=== PATIENT | male | born 1965 | race Caucasian/White ===

== ENCOUNTER 2017-05-11 20:19 | Inpatient (IN) ==
[2017-05-11 21:15] LABS: Basophils % 0.3 %; Eosinophils # 0.2 K/mcL (0.0-0.6); Eosinophils % 2.8 %; Hematocrit 46.9 % (37.5-50.1); Hemoglobin 16.5 g/dL (12.9-16.9); Immature Granulocytes % 0.2 % (0-4); Lymphocytes # 1.7 K/mcL (0.6-4.6); Lymphocytes % 26.9 %; Mean Corpuscular HGB Conc 35.2 g/dL (31.6-35.5); Mean Corpuscular Hemoglobin 30.7 pg (28.0-33.3); Mean Corpuscular Volume 87.3 fL (83.0-100.0); Mean Platelet Volume 10.7 fL (9.4-12.4); Monocytes # 0.6 K/mcL (0.0-1.3); Monocytes % 9.4 %; Neutrophils # 3.7 K/mcL (1.6-8.9); Platelet Count 135 K/mcL (140-400); Red Blood Count 5.37 M/mcL (4.19-5.50); Red Cell Distribution Width 13.4 % (11.5-14.5); Segmented Neutrophils % 60.4 %
[2017-05-11 21:27] LABS: INR 1.1; Prothrombin Time 11.9 Seconds (9.4-12.1)
[2017-05-11 21:29] LABS: Activated Partial Thrombo Time 30.5 Seconds (26.0-36.0); BUN/Creatinine Ratio 18 (6-26); Blood Urea Nitrogen 25 mg/dL (8-26); Carbon Dioxide 23 mEq/L (19-29); Chloride 103 mEq/L (98-109); Glucose 143 mg/dL (70-99); Osmolality,Calculated 293 (280-300); Potassium 3.2 mEq/L (3.5-4.5); Sodium 138 mEq/L (136-145); eGFR For African Americans > 60 (> 60); eGFR For Non-African Americans 53 (> 60)
[2017-05-11] MEDS ORDERED: Aspirin 81 MG TAB.CHEW PO ONE (22:25)
--- NOTE | 2017-05-11 22:31 | Emergency Department Note ---
Addendum entered and electronically signed by Romero Yeager DO 05/12/17 00:18: EKG done and reviewed by myself and attending at 2030. It shows a normal sinus rhythm at a rate of 97, OR 163, QRS 96, QTC 394 with a normal axis. There is ST elevation in leads V1 through V3 with ST depression in lead 2. There is no old EKG to compare with at this time. There are no signs of T-wave abnormalities, heart strain, hypertrophy, heart block. There does not appear to be somewhat forgotten syndrome. Overall impression is EKG shows normal sinus rhythm with ST elevations and ST depressions. This was relayed to the tumbler machine operator helper. Original Note: Disposition Clinical Impression: Elevated troponin, ST elevation Disposition: Admitted As Inpatient Condition: Fair Time of Disposition: 00:10 Chest Pain HPI - General Chief Complaint: ED Chest Pain Stated Complaint: chest discomfort Time Seen by Provider: 05/11/17 22:07 Source: patient Mode of arrival: ambulatory Limitations: no limitations Vital Signs Reviewed: Yes Nursing Notes Reviewed: Yes - History of Present Illness HPI Narrative: 51-year-old male presents to the ED complaining of chest discomfort. He has a history of heart catheterization where they placed for stents at [place] in 2010 he has not had any problems since then. He has a history of hypertension as well as hyperlipidemia. Patient states the chest discomfort started about 2 days ago was centrally located and there was no radiation. He said that it comes and goes he has not taken anything for the pain. He does not know any nausea or vomiting. States the pain is when it is present 6 out of 10. He has noticed some exertional dyspnea when he does any kind of walking recently which is abnormal for him. also states that he has been a lower fatigued and tired recently. He also has had this chronic cough for the last week and this presented the same way as his last time he had a heart attack back in 2010. Patient states he has had a headache for the last couple days. No blurry vision , abdominal pain, nausea or vomiting, fevers, change in bowel or bladder movements, pain or tingling going down the arms or legs. Severity scale (1-10): 0 - Related Data Home Medications Medication Instructions Recorded Confirmed Aspirin Enteric Coated [Aspirin EC] 81 mg PO DAILY 05/11/17 05/11/17 Lisinopril [Zestril] 40 mg PO DAILY 05/11/17 05/11/17 Metoprolol Succinate 100 mg PO DAILY 05/11/17 05/11/17 Omeprazole [PriLOSEC] 20 mg PO DAILY 05/11/17 05/11/17 hydroCHLOROthiazide 25 mg PO QAM 05/11/17 05/11/17 [Hydrochlorothiazide] Allergies Allergy/AdvReac Type Severity Reaction Status Date / Time No Known Allergies Allergy Unverified 07/06/15 11:36 Constitutional: Reports: as per HPI Eyes: Denies: eye pain, eye discharge, vision change ENT ED: Denies: ear pain, throat pain, dental pain, hearing loss, epistaxis, congestion, dysphagia Cardiovascular: Reports: chest pain (Not on presentation to the emergency department.), dyspnea on exertion. Denies: palpitations, edema, syncope Respiratory: Denies: cough, dyspnea, wheezes, hemoptysis, stridor Gastrointestinal: Denies: abdominal pain, nausea, vomiting, diarrhea, constipation, hematemesis, melena, hematochezia Genitourinary: Denies: urgency, dysuria, frequency, hematuria Musculoskeletal: Denies: back pain, neck pain, arthralgia, myalgia Integumentary: Denies: rash, abrasion, lesions Neurological: Reports: as per HPI, headache. Denies: weakness, numbness, paresthesias Psychiatric: Denies: anxiety, depression, suicidal thoughts, homicidal thoughts , auditory hallucinations, visual hallucinations Chest Pain PMH - Past Medical History Medical history: Reports: hypertension, myocardial infarction - Social History Smoking Status: Never smoker Alcohol use: Reports: occasionally Drug use: Reports: none Physical Exam - General Limitations: no limitations General appearance: alert, in no apparent distress - Head Head exam: atraumatic, normocephalic, normal inspection - Eye Eye exam: Present: normal appearance, PERRL, EOMI - ENT ENT exam: normal exam, normal oropharynx, mucous membranes moist - Neck Neck exam: Present: normal inspection, full ROM, trachea midline - Chest Chest inspection: Present: normal inspection, symmetric chest wall rise. Absent : tenderness - Respiratory Respiratory exam: Present: normal lung sounds bilaterally. Absent: respiratory distress, wheezes, accessory muscle use - Cardiovascular Cardiovascular exam: Present: regular rate, normal rhythm, normal heart sounds - Abdominal Exam Abdominal exam: Present: soft, Non-Tender, normal bowel sounds. Absent: tenderness, distention, guarding, rebound, rigidity - Extremities Exam Extremities exam: Present: normal inspection, full ROM. Absent: tenderness, pedal edema - Back Exam Back exam: Present: normal inspection, full ROM. Absent: tenderness - Neurological Exam Neurological exam: Present: alert, oriented X3 - Skin Skin exam: Present: warm, dry, intact, normal color Course Course Narrative: 51-year-old male presented to the ED complaining of chest discomfort that started about 2 days ago. He was not in triage they did labs as well as chest x -ray and EKG there. He did have an elevated troponin of 0.27 cm immediately brought back EKG did show some ST changes as there were his elevation in V1, V2 and some ST depression in lead 2. Patient does have a cardiac history. Because all the labs chest x-ray and EKG were done we will contact the tumbler machine operator helper to see if he needs immediate catheterization. We will not do that this time and he will be admitted to the medicine service being heparinized. He was given aspirin. We will contact the hospitalist. - Consultations Consultation #1: Spoke with Dr. Lopes who stated that he is 20 admissions behind and he would call back to accept this patient. I told him that this is a chest pain and we contacted the interventional list. I commit for an elevated troponin he said okay and would call back. Time: 23:00 Consultation #2: Spoke with Dr. Raines the tumbler machine operator helper who stated that the EKG changes are most likely old and they would consider heart catheterization tomorrow morning as they would not do it tonight. They recommend that we heparinize the patient admit to the hospitalist service and consult cardiology. Time: 22:55 Consultation #3: Dr. Lopes called back at this time and said he would accept the patient to a telemetry bed. Assessment and plan as well as history and physical were splinted. He understands this. I told him that RE consulted with cardiology who recommended to heparinize the patient which started been done. We did give the patient aspirin I told him this. Time: 00:09 Vital Signs Temperature 98.1 F 05/11/17 20:26 Pulse Rate 107 05/11/17 20:26 Respiratory Rate 18 05/11/17 20:26 Blood Pressure 198/117 05/11/17 20:26 O2 Sat by Pulse Oximetry 97 05/11/17 20:26 Temperature 98.1 F 05/11/17 20:26 Pulse Rate 77 05/12/17 00:12 Respiratory Rate 18 05/12/17 00:44 Blood Pressure 149/77 05/12/17 00:44 O2 Sat by Pulse Oximetry 96 05/12/17 00:12 Oxygen Delivery Oxygen Delivery Room Air Chest Pain - MDM Narrative Medical decision making narrative: 51-year-old male presents to the ED complaining of chest tightness. Upon arrival to the emergency department he did not have any chest pain. He did have an elevated troponin of 0.27 chest x-ray was normal EKG did show some ST elevation in leads V1 through V3 as well as ST depression in lead 2. We contacted the tumbler machine operator helper who said that they would see them tomorrow and there have been no heart catheter in today after looking at the EKG he recommended that we heparinize admit to medicine and consult cardiology. We did give him aspirin upon arrival. He is not having any chest pains would not give him any nitroglycerin. He was given heparin. We contacted the hospitalist who agreed to admit the patient with cardiology consultation. Patient is still having no pain at this time. Patient is admitted to the hospitalist service to a telemetry bed. Patient is discharged in stable condition and vital signs are stable this time. Chest X-Ray 05/11/17 20:30 IMPRESSION: No acute cardiopulmonary disease. D/ / Ruperto Lovelace MD / Ruperto Lovelace MD Interpreting Provider: Ruperto Lovelace MD - Medical Records Medical records reviewed: Yes I reviewed the patient's medical records. - Lab Data Lab results reviewed: Yes I reviewed the patient's lab results. Result diagrams: 05/11/17 21:03 05/11/17 21:03 Lab Results 05/11/17 05/11/17 05/11/17 Range/Units 21:03 21:03 21:03 WBC 6.2 (4.3-11.1) K/mcL RBC 5.37 (4.19-5.50) M/mcL Hgb 16.5 (12.9-16.9) g/dL Hct 46.9 (37.5-50.1) % MCV 87.3 (83.0-100.0) fL MCH 30.7 (28.0-33.3) pg MCHC 35.2 (31.6-35.5) g/dL RDW 13.4 (11.5-14.5) % Plt Count 135 L (140-400) K/mcL MPV 10.7 (9.4-12.4) fL Immature Gran % 0.2 (0-4) % Seg Neutrophils % 60.4 % Lymphocytes % 26.9 % Monocytes % 9.4 % Eosinophils % 2.8 % Basophils % 0.3 % Neutrophils # 3.7 (1.6-8.9) K/mcL Lymphocytes # 1.7 (0.6-4.6) K/mcL Monocytes # 0.6 (0.0-1.3) K/mcL Eosinophils # 0.2 (0.0-0.6) K/mcL Basophils # 0.0 (0.0-0.2) K/mcL PT 11.9 (9.4-12.1) Seconds INR 1.1 APTT 30.5 (26.0-36.0) Seconds Sodium 138 (136-145) mEq/L Potassium 3.2 L (3.5-4.5) mEq/L Chloride 103 (98-109) mEq/L Carbon Dioxide 23 (19-29) mEq/L BUN 25 (8-26) mg/dL Creatinine 1.41 H (0.72-1.25) mg/dL Est GFR ( Amer) > 60 (> 60) Est GFR (Non-Af Amer) 53 L (> 60) BUN/Creatinine Ratio 18 (6-26) Glucose 143 H (70-99) mg/dL Calculated Osmolality 293 (280-300) Calcium 10.0 (8.6-10.8) mg/dL Troponin I (0-0.03) ng/mL 05/11/17 Range/Units 21:03 WBC (4.3-11.1) K/mcL RBC (4.19-5.50) M/mcL Hgb (12.9-16.9) g/dL Hct (37.5-50.1) % MCV (83.0-100.0) fL MCH (28.0-33.3) pg MCHC (31.6-35.5) g/dL RDW (11.5-14.5) % Plt Count (140-400) K/mcL MPV (9.4-12.4) fL Immature Gran % (0-4) % Seg Neutrophils % % Lymphocytes % % Monocytes % % Eosinophils % % Basophils % % Neutrophils # (1.6-8.9) K/mcL Lymphocytes # (0.6-4.6) K/mcL Monocytes # (0.0-1.3) K/mcL Eosinophils # (0.0-0.6) K/mcL Basophils # (0.0-0.2) K/mcL PT (9.4-12.1) Seconds INR APTT (26.0-36.0) Seconds Sodium (136-145) mEq/L Potassium (3.5-4.5) mEq/L Chloride (98-109) mEq/L Carbon Dioxide (19-29) mEq/L BUN (8-26) mg/dL Creatinine (0.72-1.25) mg/dL Est GFR ( Amer) (> 60) Est GFR (Non-Af Amer) (> 60) BUN/Creatinine Ratio (6-26) Glucose (70-99) mg/dL Calculated Osmolality (280-300) Calcium (8.6-10.8) mg/dL Troponin I 0.27 H* (0-0.03) ng/mL - Radiology Data Radiology results reviewed: Yes I reviewed the patient's radiology results. Heart Score - Score History: Moderately Suspicious EKG: Non Specific repolarisation Disturbance Age: 45-65 Risk Factors: Equal/Greater than 3 risk factor or history of atherosclerotic disease Troponin: 1-3x normal limit HEART Score Total: 6 S.B.A.R. - S.B.A.R. Transition of Care: Spoke with Dr. Lopes the hospitalist who agreed to admit the patient to a telemetry service and consult with cardiology. This was done End history and physical as well as her assessment and plan. Situation: Demographics, MOA Background: Presenting Complaint, Relevant PMH, Meds, & Allergies Assessment: Vital Signs, Course and respsone to treatment, Exam Concerns, Patient/Family Expectation, Pertinant Lab Results, Outstanding Labs Recommendation: Barrier(s) to disposition, Recommendation based on pending studies, treatments, or consults Gina Report Given to: Dr. Moses Fuentes Repor Time: 00:10 Attestation Statement - Attestation Attestation: I, Khoi Desir, examined this patient and my medical decision-making was reviewed with the FORECAST ANALYST/PA/Advanced Practice Nurse/Resident Physician. I agree with the documented findings, disposition and treatment plan as described except to the extent set forth below. 51-year-old male presents emergency Department with concerns of chest discomfort , weakness, and fatigue. Patient has a history of multiple stents placed about 6 years ago for his [place] which presented with similar symptoms. Patient states he has had increasing weakness and fatigue over the past 2 days. He had intermittent chest pressure which radiated to his left arm. In the emergency department the patient states he is pain free. Patient had initial positive troponin of 0.27. He had an EKG which showed normal sinus rhythm with rate of [address] depressions in lead V2 and ST elevations in V1, V2. Interventionalists, Dr. Raines, was paged immediately after initial evaluation. He recommended that as long as the patient was pain-free, to admit the patient on heparin to the hospitalist and he would see in the morning for further evaluation. Patient given aspirin in the emergency department. He continued to be pain-free.
[2017-05-11] MEDS ORDERED: *HR* Heparin 5,000 UNIT/ML VIAL IVP PRN ×2 (23:36)
[2017-05-11] MEDS ORDERED: *HR* Heparin 5,000 UNIT/ML VIAL IVP ONE (23:36)
[2017-05-11] MEDS ORDERED: Heparin 25,000 UNIT/500 ML D5W 25,000 UNIT/500 ML MLS IVC SCH (23:45)
[2017-05-12] MEDS ORDERED: Naloxone 0.4 MG/ML INJ IVP PRN (01:39)
[2017-05-12] MEDS ORDERED: Ondansetron 4 MG/2 ML VIAL IVP PRN ×2 (01:39→19:16)
[2017-05-12] MEDS ORDERED: Acetaminophen 325 MG TABLET PO PRN (01:39)
[2017-05-12] MEDS ORDERED: *HR* Promethazine 25 MG/ML VIAL IVP PRN (01:39)
[2017-05-12] MEDS ORDERED: *HR* Morphine 2 MG/ML SYRINGE IVP PRN ×2 (01:39→19:32)
[2017-05-12] MEDS ORDERED: Nitroglycerin 0.4 MG TAB.SUBL SL PRN (01:43)
--- NOTE | 2017-05-12 02:46 | Internal Med History&Physical ---
Date of Encounter: 05/12/17 Time of Encounter: 02:00 Assessment and Plan (1) Chest pain Current visit: Yes Status: Acute Acute chest pain - probable ACS Continue aspirin, IV heparin, statin, nitroglycerin as needed EKG - normal sinus rhythm with ST depression in lead [address] elevation in V1 to V3 Troponin - 0.27, cycle troponin Chest x-ray - no acute process Cardiology consult - patient will be evaluated in the morning, advised to continue IV heparin Cardiac telemetry, continue to monitor closely, labs in a.m. Qualifiers: Ischemic chest pain type: stable angina pectoris Qualified Code(s): I20.8 - Other forms of angina pectoris (2) Hypertension Current visit: Yes Status: Chronic Essential hypertension, uncontrolled, continue home meds, monitor Qualifiers: Hypertension type: essential hypertension Qualified Code(s): I10 - Essential (primary) hypertension (3) CAD (coronary artery disease) Current visit: Yes Status: Chronic Coronary artery disease status post stents Continue aspirin and statin Qualifiers: Coronary Disease-Associated Artery/Lesion type: [place] artery [place] vs. transplanted heart: [place] heart Associated angina: with unstable angina Qualified Code(s): I25.110 - Atherosclerotic heart disease of [place] coronary artery with unstable angina pectoris (4) DVT prophylaxis Current visit: Yes Status: Acute Continue IV heparin Internal Medicine - H&P: HPI Chief complaint: chest pain Admitted From: Emergency Dept Plans for Post Hospital Care: Home History of present illness: Mr. Irene is a 51 year old male with past medical history of coronary artery disease status post stents, hypertension. Patient presents today with complaint chest pain. Examined in the room. Patient is awake and alert. Not in any distress. Able to provide all history. No family members at bedside. Patient states he developed chest pain about 2 days ago. Symptoms have slowly worsened. He states it was worse when he went to work today. Aggravated with exertion. He also complained of mild associated shortness of breath and palpitations. Also has a headache. Denies abdominal pain, nausea or vomiting or fever. He describes the pain as a dull constant pressure. It is mainly the left side and radiates to the neck at times. No alleviating factors. No other associated symptoms. Initial workup in the ER is significant for elevated troponin. EKG shows normal sinus rhythm with ST depression. Cardiology has been notified. Patient is on IV heparin. Continue aspirin and statin. CODE STATUS full code. Past Med Surg Social Fam HX - Past Medical History Medical history: hypertension, myocardial infarction - Social History Smoking Status: Never smoker Smokeless Tobacco Status: Yes Alcohol use: rarely Drug use: none - Family History Mother Age: 70 Family Member Ethnicity: Non- Living Status: Still Living Hx Family Endocrine Disorder: Yes Father Age: 75 Family Member Ethnicity: Non- Living Status: Still Living Hx Family Cancer: Yes (prostate cancer) Internal Medicine - H&P: Meds Aspirin Enteric Coated [Aspirin EC] 81 mg PO DAILY 05/11/17 [History] Lisinopril [Zestril] 40 mg PO DAILY 05/11/17 [History] Metoprolol Succinate 100 mg PO DAILY 05/11/17 [History] Omeprazole [PriLOSEC] 20 mg PO DAILY 05/11/17 [History] hydroCHLOROthiazide [Hydrochlorothiazide] 25 mg PO QAM 05/11/17 [History] 3 Allergy/AdvReac Type Severity Reaction Status Date / Time No Known Allergies Allergy Unverified 07/06/15 11:36 All Systems PM: A 10-system review of systems was performed and is negative for pertinent findings except as documented above in the HPI. - Constitutional Constitutional: no fatigue, no fever(s), no weakness - EENT Eyes: no blurry vision - Cardiovascular Cardiovascular ROS IM: chest pain, dyspnea, dyspnea on exertion, palpitations, no diaphoresis, no edema, no lightheadedness, no orthopnea, no syncope - Respiratory Respiratory: dyspnea, dyspnea on exertion, no cough, no hemoptysis, no wheezing , no chest congestion - Gastrointestinal Gastrointestinal: no abdominal pain, no cramping, no diarrhea, no hematemesis, no hematochezia, no nausea, no vomiting - Genitourinary Genitourinary ROS male: no dysuria - Neurological Neurological ROS: no abnormal gait, no confusion, no convulsions, no dizziness, no loss of vision, no numbness, no tingling - Constitutional Vitals: Temp Pulse Resp BP Pulse Ox 97.5 F L 60 15 162/104 94 05/12/17 01:34 05/12/17 01:34 05/12/17 01:34 05/12/17 01:34 05/12/17 01:34 General appearance: Present: A&O X 3, pleasant, no acute distress, answers questions appropriately - Head Head exam: Present: atraumatic - Eye Eye exam: Present: EOMI - ENT ENT exam: Present: mucous membranes moist - Respiratory Respiratory exam: Present: CTAB. Absent: accessory muscle use, rales, rhonchi, wheezes, tachypnea - Cardiovascular Cardiovascular exam: Present: RRR, +S1, +S2 - GI/Abdominal GI/Abdominal exam: Present: soft. Absent: distended, firm, guarding, tenderness - Extremities Exam Extremities exam: Present: radial pulses palpable and symmetrical. Absent: calf tenderness, cyanotic, pedal edema - Neurological Exam Neurological exam: Present: alert, oriented X3, no focal deficits. Absent: facial droop, speech deficit Internal Med - H&P Results - Labs CBC & Chem 7: 05/11/17 21:03 05/11/17 21:03
[2017-05-12 05:08] LABS: Calcium 9.5 mg/dL (8.6-10.8); Carbon Dioxide 27 mEq/L (19-29); Chloride 103 mEq/L (98-109); Chol/HDL Ratio 4.4 (0-4.9); Cholesterol 175 mg/dL (< 200); Glucose 118 mg/dL (70-99); HDL Cholesterol 40 mg/dL (40-59); LDL Cholesterol,Calculated 104 mg/dL (0-99); Potassium 3.5 mEq/L (3.5-4.5); Sodium 139 mEq/L (136-145); Triglycerides 156 mg/dL (< 150); eGFR For African Americans > 60 (> 60); eGFR For Non-African Americans > 60 (> 60)
[2017-05-12 05:31] LABS: BUN/Creatinine Ratio 20 (6-26); Osmolality,Calculated 293 (280-300)
[2017-05-12 05:32] LABS: Blood Urea Nitrogen 23 mg/dL (8-26)
[2017-05-12] MEDS ORDERED: Lisinopril 20 MG TABLET PO SCH (09:00)
[2017-05-12] MEDS ORDERED: Aspirin Enteric Coated 81 MG Tablet PO SCH (09:00)
[2017-05-12] MEDS ORDERED: Metoprolol XL (24 HR) Succ 50 MG TAB.ER.24H PO SCH (09:00)
[2017-05-12] MEDS ORDERED: hydroCHLOROthiazide 25 MG TABLET PO SCH (09:00)
--- NOTE | 2017-05-12 09:21 | Cardiology Consult Note ---
Date of Encounter: 05/12/17 Time of Encounter: 09:20 Assessment and Plan (1) NSTEMI (non-ST elevated myocardial infarction) Current Visit: Yes Status: Acute NSTEMI with troponin 0.27, 0.26. Also in the setting of elevated blood pressure and mild VALE. EKG with new ST depression in the inferolateral leads. Atypical symptoms associated with cough over the last two weeks. Reports chest pain is similar to previous CO. H/o CO and PCI in 2009. No LHC since that time. Check TTE. LHC discussed. Patient and son agrees with plan. I will discuss with Dr Khoi Corrales further. (2) CAD (coronary artery disease) Current Visit: Yes Status: Chronic H/o 4 cardiac stents in 2009 at out-side facility. Continue bb and asa. Recommend adding statin therapy. No started in past d/t mildly elevated AST/ALT. He was recommended to have liver US but he did not complete. Re-check liver enzymes. Qualifiers: Coronary Disease-Associated Artery/Lesion type: [place] artery [place] vs. transplanted heart: [place] heart Associated angina: with unstable angina Qualified Code(s): I25.110 - Atherosclerotic heart disease of [place] coronary artery with unstable angina pectoris (3) Hypertension Current Visit: Yes Status: Chronic Uncontrolled hypertension. Add norvasc. Continue lisinoril, HCTZ, and metoprolol. low sodium diet. Qualifiers: Hypertension type: essential hypertension Qualified Code(s): I10 - Essential (primary) hypertension Discussion w patient/family: The assessment and plan as outlined above was discussed with the patient and/or family members who expressed understanding and agreement. All questions were answered. Thank you for involving us in the care of your patient. Please call with any questions. History of Present Illness Consult date: 05/12/17 Requesting physician: Angy Hamilton Consult reason: elevated troponin Chief complaint: Chest and neck pain, cough, vomiting. History of present illness: Mr. Irene is a 51 year old male with a history of CAD s/p CO and PCI in 2009 at outside hospital, HUI, and HTN who presented with chest and neck burning. Last night symptoms started when he was sitting on his couch. He reports intermittent discomfort over the last two weeks. Most of the time the discomfort is preceeded by coughing. He states he coughs so hard sometimes he vomits. He denies exertional pain. Denies relieving factors. Denies NTG use. He presented to the ED and EKG completed showed ST depression in the inferior leads. Troponin elevated at 0.27. He was found to have mild VALE with creatinine at 1.41. His blood pressure was initially elevated at 190/100. His b/p did improve shortly after arrival. Reports uncontrolled hypertension. On my exam he is currently chest pain free. Past Med Surg Social Fam HX - Past Medical History Medical history: coronary artery disease, hypertension, myocardial infarction - Social History Smoking Status: Never smoker Smokeless Tobacco Status: Yes Alcohol use: rarely Drug use: none - Family History Mother Age: 70 Family Member Ethnicity: Non- Living Status: Still Living Hx Family Endocrine Disorder: Yes Father Age: 75 Family Member Ethnicity: Non- Living Status: Still Living Hx Family Cancer: Yes (prostate cancer) Medications and Allergies Aspirin Enteric Coated [Aspirin EC] 81 mg PO DAILY 05/11/17 [History] Lisinopril [Zestril] 40 mg PO DAILY 05/11/17 [History] Metoprolol Succinate 100 mg PO DAILY 05/11/17 [History] Omeprazole [PriLOSEC] 20 mg PO DAILY 05/11/17 [History] hydroCHLOROthiazide [Hydrochlorothiazide] 25 mg PO QAM 05/11/17 [History] 3 Allergy/AdvReac Type Severity Reaction Status Date / Time No Known Allergies Allergy Unverified 07/06/15 11:36 All Systems Review: A 10-system review of systems was performed and is negative for pertinent findings except as documented above in the HPI. Physical Examination Vital Signs, Last 4 Hours Temp Pulse Resp BP Pulse Ox 05/12/17 07:07 97.8 F 65 15 143/93 96 General: Conversant, No Apparent Distress HEENT: Atraumatic, Normocephaly, Mucus Membranes Moist Neck: No JVD, Normal carotid pulses Cardiac: Reg Rate and Rhythm, Normal S1 and S2, No Murmur Lungs: Normal Breath Sounds, No Wheeze, Rales, Rhonchi Neuro: Alert and responsive, No focal deficits noted Abdomen: Soft, Non-Tender Skin: No rashes noted on visualized skin Musculoskeletal: No Chest Wall Tenderness Extremities: No Clubbing, No Cyanosis, No Edema, Normal Pulses Results 05/11/17 21:03 05/12/17 04:43 Lab Results 05/12/17 05/12/17 05/12/17 04:43 04:43 04:43 APTT 60.3 H D Sodium 139 Potassium 3.5 Chloride 103 Carbon Dioxide 27 BUN 23 Creatinine 1.16 Glucose 118 H Calcium 9.5 Magnesium 2.0 Troponin I 0.26 H* - Imaging and Cardiology Stress Test: report reviewed Echo: report reviewed - EKG Interpretation EKG results cardiology: personally reviewed Consult Discharge Plan - Plan Referrals: Lizette Cho CNP [Primary Care Provider] -
[2017-05-12] MEDS ORDERED: amLODIPine 5 MG TABLET PO SCH (10:00)
[2017-05-12] MEDS ORDERED: Mannitol 25% vial 12.5 GM/50 ML VIAL IVP ONE (10:08)
[2017-05-12] MEDS ORDERED: Lidocaine 2% Syringe 100 MG/5 ML IV ONE (10:08)
[2017-05-12] MEDS ORDERED: *HR* Phenylephrine 10 MG/ML VIAL IVC ONE (10:08)
[2017-05-12] MEDS ORDERED: Tranexamic Acid 1,000 MG/10 ML VIAL IV ONE (10:08)
[2017-05-12] MEDS ORDERED: *HR* Magnesium Sulfate 2 GM/50 ML PIGGYBACK IVPB ONE (10:08)
[2017-05-12] MEDS ORDERED: *HR* Heparin 10,000 UNIT/10 ML VIAL IV ONE (10:08)
[2017-05-12] MEDS ORDERED: Albumin Human 25% 25 GM/100 ML IV.SOLN IV ONE (10:08)
[2017-05-12] MEDS ORDERED: Heparin 1,000 UNITS/500 mL NS 500 ML ONE ×2 (10:12→11:42)
[2017-05-12] MEDS ORDERED: *HR* Heparin 10,000 UNIT/10 ML VIAL ONE (10:12)
[2017-05-12] MEDS ORDERED: 0.9 % Sodium Chloride 1,000 ML ONE ×2 (10:12→10:45)
--- NOTE | 2017-05-12 10:20 | Pre-Sedation Evaluation ---
Pre-sedation evaluation - Pre-sedation checklist Date of procedure: 05/12/17 Procedure: [facility] Recent Vitals: Last Vital Signs Temp 97.8 F 05/12/17 07:07 Pulse 65 05/12/17 07:07 Resp 15 05/12/17 07:07 BP 143/93 05/12/17 07:07 Pulse Ox 96 05/12/17 09:37 H&P (including ROS) documented in medical record: Yes Previous reaction to sedatives/anesthetics: No Dietary Status: NPO after Midnight Airway Assessment: Patient can open mouth completely, TMJ function normal, Micrognathia (under-bite, receding chin) absent, Neck with adequate range of motion Dentition: No loose teeth or bridges Possible difficult airway: No ASA Classification *see protocol: CLASS II-Mild systemic disease Plan of Care: Pt appropriate candidate for procedure/moderate/conscious sedation , Risks/benefits of procedure/sedation discussed w/ patient/family
[2017-05-12] MEDS ORDERED: Nitroglycerin 1,000 MCG/10 ML VIAL IV ONE (10:21)
[2017-05-12] MEDS ORDERED: *HR* Midazolam HCl 5 MG/5 ML VIAL IVP ONE ×4 (10:45→18:49)
[2017-05-12] MEDS ORDERED: *HR* FentaNYL (PF) 250 MCG/5 ML VIAL ONE ×2 (10:45→16:51)
[2017-05-12 11:11] LABS: Alanine Aminotransferase 69 Units/L (0-55); Aspartate Amino Transferase 34 Units/L (5-34)
--- NOTE | 2017-05-12 11:39 | Anesthesia Evaluation PreOp ---
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 History: Denies Any Significant HX Other Medical History: Denies Any Significant HX Alcohol Use: rarely Drug use: none Medications and Allergies Aspirin Enteric Coated [Aspirin EC] 81 mg PO DAILY 05/11/17 [History] Lisinopril [Zestril] 40 mg PO DAILY 05/11/17 [History] Metoprolol Succinate 100 mg PO DAILY 05/11/17 [History] Omeprazole [PriLOSEC] 20 mg PO DAILY 05/11/17 [History] hydroCHLOROthiazide [Hydrochlorothiazide] 25 mg PO QAM 05/11/17 [History] 3 Allergy/AdvReac Type Severity Reaction Status Date / Time No Known Allergies Allergy Unverified 07/06/15 11:36 - Meds/Allergy Pre-op Review Medications Reviewed: Yes Allergies Reviewed: Yes Beta Blockers on Current Med List: Yes If Beta Blockers taken, Date/Time (Last Dose taken): today 0900 Anesthesia Results - Labs 05/11/17 21:03 05/12/17 04:43 Anesthesia Exam Selected Entries 05/12/17 07:07 Temperature 97.8 F Pulse Rate 65 Respiratory Rate 15 Blood Pressure 143/93 O2 Sat by Pulse Oximetry 96 Weight: 112kg - HEENT Pupil (Motor): EOMI Mallampati: III Teeth: Normal Oral Opening: Greater than 3 - AIR GRINDER LOC: Oriented AIR GRINDER Motor: Normal RUE, Normal LUE, Normal RLE, Normal LLE, Normal Face AIR GRINDER Sensory: Normal: RUE, LUE, RLE, LLE, Face - Cardiac Rhythm: Regular Murmur: None - Pulmonary Breath Sounds: bilateral Clear Respiratory Effort: Symmetrical Anesthesia Assess/Plan ASA Score: 4, E Modified [place] Scale for Level of Consciousness: Cooperative, oriented, and tranquil Anesthetic Plan: General Monitoring Plan: Standard Monitors, A-Line, PAC, EDMOND Recovery Plan: ICU (discussed risks of GA, lines, EDMOND and blood products. Questions answered and agrees to proceed.)
[2017-05-12] MEDS ORDERED: *HR* Rocuronium Bromide 50 MG/5 ML VIAL ONE ×4 (11:46→17:44)
[2017-05-12] MEDS ORDERED: *HR* Phenylephrine 10 MG/ML VIAL ONE (11:46)
[2017-05-12] MEDS ORDERED: Protamine Sulfate 250 MG/25 ML VIAL IVP ONE (11:47)
[2017-05-12] MEDS ORDERED: Tranexamic Acid 1,000 MG/10 ML VIAL ONE ×2 (11:47→14:56)
[2017-05-12] MEDS ORDERED: *HR* Etomidate 20 MG/10 ML AMPUL IVP ONE (11:47)
[2017-05-12] MEDS ORDERED: Famotidine 20 MG/2 ML VIAL ONE (11:47)
[2017-05-12] MEDS ORDERED: *HR* FentaNYL (PF) 1,000 MCG/20 ML VIAL ONE (11:55)
[2017-05-12] MEDS ORDERED: Nitroglycerin 25 MG/250 ML INFUS..BTL IVC ONE (11:57)
--- NOTE | 2017-05-12 12:10 | Invasive Diagnostic Lab Proc ---
Name: Didier Irene Date of Study: 05/12/2017 Date: 1965 Ht: 70.1in Medical Record#: [id number] Age: 51 Wt: 247.80lb Gender: Male BSA: 2.29 Order #: [id number] BMI: 35.48 Physicians Procedure Physician: Rachael Corrales MD, [facility] Referring MD: Referring MD: Staff Name Position Time In Herbert Ortega RN Slate Splitting Supervisor 10:50 AM Georgina Hsu RT (R) Scrub 10:51 AM Pearl Boone RN Monitor 10:51 AM Teetee Dunn RN Monitor 10:51 AM Indications Indication Non-Stemi Procedures Performed Procedure L HRT ARTERY/VENTRICLE ANGIO Pre-Procedure Checklist Informed consent is complete signed and on chart. H&P is on chart. ID band is on and ID verified with patient. Patient NPO for procedure The procedure was described for the patient and questions were answered. Blood Pressure: 143/93 ECG is on chart. Rhythm: NSR Plan of Care Patient will tolerate the procedure without complications. Adequate level of comfort will be maintained. Hemodynamics will remain stable Patient will recover from procedure without complications. Respiratory function will be maintained. Cardiac rhythm will remain stable. Patient temperature will be maintained. Patient and/or family have verbalized understanding of the procedure. Patient Education Chief Complaint/Reason for Test: Cardiac Cath Developmental Category: Adult (18-64 years) Developmentally Appropriate for Age: Yes Learning Barriers: None Education Needs: Procedure Education Method: Verbal Information Taught: Cardiac Cath Educational Evaluation: Able to repeat information Intravenous Access Time IV Size Location DC'd Fluid/Drip Rate Units RN 10:20 AM 20g 1 1/" Patent On Arrival Lt Antecubital 0.9NaCl 50 ml/hr Herbert Ortega RN Allergies No Known Allergies Vital Signs Time BP (mmHg) HR (bpm) O2 Sat. RR (bpm) LOC 10:20 AM 143 / 93 65 96 % 15 5 = Fully awake and oriented or at pre-proc level 10:56 AM / % 5 = Fully awake and oriented or at pre-proc level 10:56 AM / % 4 = Oriented but drowsy 11:11 AM / % 4 = Oriented but drowsy 11:29 AM 169 / 105 73 98 % 18 11:34 AM 158 / 98 56 97 % 17 10:58 AM 152 / 101 62 98 % 17 11:03 AM 141 / 94 60 96 % 14 11:08 AM 141 / 86 58 94 % 15 11:13 AM 137 / 81 57 97 % 16 11:18 AM 134 / 88 61 97 % 15 11:23 AM 129 / 82 55 96 % 16 Procedural Medications Time Medication Dose Units Method Given By 10:54 AM Oxygen 2 L/min nasal cannula Herbert Ortega RN 10:56 AM Versed 2 mg Intravenous Herbert Ortega RN 10:56 AM Fentanyl 50 mcg Intravenous Herbert Ortega RN 11:10 AM Lidocaine 2% 16 ml Subcutaneous Rachael Corrales MD, [facility] ASA Classification: CLASS II- Mild systemic disease (i.e. well-controlled diabetes, hypertension, asthma, cigarette smoking) Tracy Score Preprocedure Postprocedure Activity 2- Moves 4 extremities sustained head lift Activity 2- Moves 4 extremities sustained head lift Circulation 2- SBP +/= 20 points of pre-anesthetic level Circulation 2- SBP +/= 20 points of pre-anesthetic level Consciousness 2- Awake and alert oriented x 3 Consciousness 2- Awake and alert oriented x 3 O2 Saturation 2- Able to maintain O2 satruation of 92% on room air O2 Saturation 2- Able to maintain O2 satruation of 92% on room air Respiratory 2- Able to deep breathe and cough well Respiratory 2- Able to deep breathe and cough well Total Score 10 Total Score 10 Contrast Agent: Isovue Diagnostic Contrast: 46 ml Total Contrast: 46 ml Fluoro Dose: 182 mGy Procedure Log Time Note Enter By 10:47 AM CathStat 10:50 AM 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 to farm laborer 2 at 10:50 spencer 10:51 AM Herbert Ortega RN Position: Slate Splitting Supervisor Time in: 10:50 [facility] 10:51 AM Georgina Hsu RT (R) Position: Scrub Time in: 10:51 [facility] 10:51 AM Pearl Boone RN Position: Monitor Time in: 10:51 [facility] 10:51 AM Teetee Dunn RN Position: Monitor Time in: 10:51 [facility] 10:51 AM Patient charges- Angio tray pack, Navilyst 3mm J, Pulse Oximetry and ACIST tubing and transducer tsoummers 10:51 AM Case Delayed No [email or web address] 10:51 AM Hair removed from procedure site in procedure lab using clippers. Bilateral groin prepped with Chloraprep by Herbert Ortega RN, safety strap applied then patient was draped. [facility] intact. [facility] 10:51 AM Physicsuzan paged/called 10:51. tsoummers 10:51 AM Physicsuzan responded and notified patient is ready 10:51 tsoummers 10:51 AM Physician arrived 10:51 [facility] 10:51 AM Meet and greet completed [facility] 10:51 AM Sign in performed according to hospital policy. tsoummers 10:51 AM Procedure start :51 tsoummers 10:54 AM ASA Class CLASS II- Mild systemic disease (i.e. well-controlled diabetes, hypertension, asthma, cigarette smoking) [facility] 10:54 AM Time: 10:54 Oxygen on at 2 L/min per nasal cannula by Herbert Ortega RN [facility] 10:55 AM Case Start 10:55 AM Vitals capture started with the following parameters, Patient=Adult, Interval=5 min, Initial Agrtatww=696 mmHg, Deflation Rate=5 mmHg, Cuff placed on Right Arm 10:56 AM Vitals capture stopped. 10:56 AM Time: 10:56 Patient comfortable and pain free: Yes [facility] 10:56 AM Time: 10:56LOC: 5 = Fully awake and oriented or at pre-proc level [facility] 10:56 AM Time: 10:56 Versed 2 mg Intravenous Given by Herbert Ortega RN [facility] 10:56 AM Time: 10:56 Fentanyl 50 mcg Intravenous Given by Herbert Ortega RN [facility] 10:57 AM Vitals capture started with the following parameters, Patient=Adult, Interval=5 min, Initial Yketwyrg=897 mmHg, Deflation Rate=5 mmHg, Cuff placed on Right Arm 10:57 AM Recorded ECG: HR=61 Condition=Condition 1 10:58 AM Vitals capture stopped. 10:58 AM Vitals capture started with the following parameters, Patient=Adult, Interval=5 min, Initial Lrjutikb=640 mmHg, Deflation Rate=5 mmHg, Cuff placed on Right Arm 10:58 AM HR=62 bpm, OSOJ=251/101 mmhg, SpO2=98.0 %, Resp=17 B/min, EtCO2=35 mmHg, Comment=Sinus Dov 11:03 AM HR=60 bpm, WYSU=742/94 mmhg, SpO2=96.0 %, Resp=14 B/min, EtCO2=33 mmHg, Comment=Sinus Dov 11:08 AM Pressure channel 3 zeroed. 11:08 AM Time out performed according to hospital policy [facility] 11:08 Clinical Presentation: Non-STEMI [facility] 11:08 AM HR=58 bpm, UOED=981/86 mmhg, SpO2=94.0 %, Resp=15 B/min, EtCO2=40 mmHg, Comment=Sinus Dov 11:10 AM Time: :10 16 ml Lidocaine 2% to right groin Subcutaneous Given by Rachael Corrales MD, [facility] 11:10 AM Access obtained by percutaneous puncture. 5Fr 10cm Terumo Kamiah sheath placed in right Femoral artery. [id number] [facility] 11:11 AM 5Fr FL 4 catheter inserted over the wire [facility] 11:11 AM 0.035 145cm Navilyst 3mmJ wire [id number] [facility] 11:11 AM Time: 10:56 Patient comfortable and pain free: Yes [facility] :11 AM Time: 10:56LOC: 4 = Oriented but drowsy [facility] 11:11 AM LCA angiography performed in multiple views. [facility] 11:12 AM Recorded Pressure: Ao, HR=57, Condition=Condition 1 (Aorta) Ao 121/84/102 11:13 AM Catheter removed [facility] 11:13 AM 5Fr FR 4 catheter inserted over the wire [facility] 11:13 AM RCA angiography performed in multiple views. [facility] 11:13 AM HR=57 bpm, HVBE=622/81 mmhg, SpO2=97.0 %, Resp=16 B/min, EtCO2=40 mmHg, Comment=Sinus Dov 11:15 AM Catheter removed [facility] 11:15 AM 5Fr Pigtail catheter inserted over the wire [facility] 11:15 AM Catheter selectively placed in left ventricle [facility] 11:15 AM Bolus angiogram of left Ventricle complete: 8 ml/sec for a total of 24 mls [facility] 11:16 AM Pressure channel 3 zeroed. 11:16 AM Recorded Pressure: LV, HR=59, Condition=Condition 1 (Left Ventricle) LV 97/8/7 11:16 AM Recorded Pressure: LV, Ao, HR=59, Condition=Condition 1 (Left Ventricle) LV 95/13/16, (Aorta) Ao 105/77/91 11:17 AM Catheter removed [facility] 11:17 AM Bolus angiogram of right Femoral complete: 4 ml/sec for a total of 7 mls [facility] 11:17 AM Wire removed [facility] 11:17 AM Procedure completed at 11:17 [facility] 11:18 AM HR=61 bpm, TRVK=889/88 mmhg, SpO2=97.0 %, Resp=15 B/min, Comment=Sinus Dov 11:19 AM Abiola notified patient is CABG consult per Pearl Boone RN. [facility] 11:20 AM Sign out completed: Radiation Dose 181.93 mGy Fluoro Time: 1.2 Isovue 370 - 200ml contrast 46.2 ml given by Rachael Corrales MD, FACC. Complications: NoneCardiac Rehab Consult needed: YesConfirmed administered medications: Yes [facility] 11:20 AM Isovue 370 - 200ml,1 Bottle(s) [facility]. [facility] 11:[facility] AM Post ECG Sinus Bradycardia [facility] 11:20 AM Post Blood Pressure 134/88 [facility] 11:21 AM Information taught Cardiac Cath [facility] 11:21 AM Education needs Procedure, Plan of Care, Safe & Effective Use of Medications, and Responsibilities of Patient in Care [facility] 11:21 AM Learning barriers :None [facility] 11:21 AM Education Methods Verbal [facility] 11:21 AM Education evaluation Able to repeat information [facility] 11:21 AM Site status No bleeding/hematoma - Rt Groin as reported by Sites, Georgina RT (R) at 11:21 [facility] 11:23 AM HR=55 bpm, VKYD=471/82 mmhg, SpO2=96.0 %, Resp=16 B/min, EtCO2=33 mmHg, Comment=Sinus Dov 11:24 AM Fluoro Time: 1.2 tsoummers 11:24 AM Isovue 370 - 200ml contrast 46.2 ml given by Rachael Corrales MD, FACC. tsoummers 11:24 AM Radiation Dose 181.93 mGy [facility] 11:26 AM Time: 11:11 Patient comfortable and pain free: Yes tsoummers 11:26 AM Time: 11:11LOC: 4 = Oriented but drowsy tsoummers 11:29 AM HR=73 bpm, BAEY=894/105 mmhg, SpO2=98.0 %, Resp=18 B/min, Comment=SR 11:32 AM 11:31 Post Pulses Bilateral DP 2+ tsoummers 11:34 AM 5Fr sheath to right groin transduced with heparanized saline and secured with opsite. tsoummers 11:34 AM Sheath left in place to be pulled on floor/holding area tsoummers 11:34 AM Opsite applied tsoummers 11:34 AM HR=56 bpm, VBOK=648/98 mmhg, SpO2=97.0 %, Resp=17 B/min, Comment=Sinus Dov 11:34 AM Delay to floor No tsoummers 11:46 AM Coronary Dominance: right tsoummers 11:47 AM Lesion found in Proximal RCA. Pre Stenosis: 50 Pre AIMEE Flow: 3: Complete and Brisk Flow/Perfusion tsoummers 11:47 AM Lesion found in Mid RCA. Pre Stenosis: 100 Pre AIMEE Flow: 0: No Flow/No perfusion tsoummers 11:47 AM Lesion found in LMCA. Pre Stenosis: 99 Pre AIMEE Flow: 3: Complete and Brisk Flow/Perfusion tsoummers 11:47 AM Lesion found in Proximal LAD. Pre Stenosis: 15 Pre AIMEE Flow: 3: Complete and Brisk Flow/Perfusion tsoummers 11:47 AM Lesion found in Mid LAD. Pre Stenosis: 80 Pre AIMEE Flow: 3: Complete and Brisk Flow/Perfusion tsoummers 11:48 AM Lesion found in Mid Circumflex. Pre Stenosis: 99 Pre AIMEE Flow: 3: Complete and Brisk Flow/Perfusion tsoummers 11:48 AM Lesion found in Ramus. Pre Stenosis: 20 Pre AIMEE Flow: 3: Complete and Brisk Flow/Perfusion tsoummers 11:48 AM Left Main Coronary Artery with 99% stenosis tsoummers 11:48 AM Proximal Left Anterior Descending Coronary Artery with 15% stenosis. tsoummers 11:49 AM Mid/Distal Left Anterior Descending Coronary Artery and diagonal branches with 80% stenosis. tsoummers 11:49 AM Circumflex, Obtuse Marginal, Left Posterior Descending, and Left Posterolateral Coronary Arteries with 99 % stenosis. tsoummers 11:49 AM Right Coronary, Right Posterior Descending Arteries with Right Posterolateral and Acute Marginal branches with 100 % stenosis. [facility] 11:49 AM Ramus with 20% stenosis. [facility] 11:[address] Wylie aware. Arterial blood drawn and sent to lab. [facility] 11:59 AM Report given to Katie CORTES Pt taken to ICU Room #12. 11:59 [facility] 11:59 AM Family placed in consult room. [facility] 11:59 AM Patient out of room: 11:59 [facility] Complications Complication None Hemodynamics Pressures Site Systolic/A Wave Diastolic/V Wave Mean AO 121 84 102 LV 97 8 7 LV 95 13 16 AO 105 77 91 Post Procedure Information Blood Pressure: 134/88 mmHg Rhythm: Sinus Bradycardia Post procedural instructions were given Surgery consult for CABG Site Checks Time Location Status Staff Sheath In? Note 11:21 AM Rt Groin No bleeding/hematoma Sites, Georgina RT (R) Pulses Time Site Pre-Procedure Post-Procedure Note 05/12/2017 10:20:00 AM Bilateral DP 2+ 11:31:00 AM Bilateral DP 2+ Updated by Teetee Dunn RN on 05/12/2017 12:01:54 PM electronically signed on 05/12/2017 12:02:26 PM with status of Final
--- NOTE | 2017-05-12 12:30 | Cardiothoracic Consult Note ---
Date of Encounter: 05/12/17 Time of Encounter: 12:26 Assessment and Plan (1) CAD (coronary artery disease) Current Visit: Yes Status: Chronic Patient is a 51-year-old hypertensive man with known CAD who presented with a 2 day history of exertional substernal chest pain radiating to his left neck. During his evaluation in the emergency department the patient was noted to have elevated troponin I levels consistent with an acute NSTEMI. Cardiac catheterization performed today revealed severe 3 vessel CAD and an LVEF 50%. The patient has been recommended for emergent CABG. I concur with this recommendation. The STS risk ocular reveals an operative mortality risk was 0.6% , deep sternal wound infection risk 0.2%, permanent stroke risk 0.3%, renal failure risk 1.5%, and reoperation risk 3.6%. The patient understands the procedure, benefits, alternatives, and risks and gives his informed consent. We will proceed with emergent CABG this afternoon. The assessment and plan as outlined above was discussed with the patient and/or family members who expressed understanding and agreement. All questions were answered. Qualifiers: Coronary Disease-Associated Artery/Lesion type: [place] artery [place] vs. transplanted heart: [place] heart Associated angina: with unstable angina Qualified Code(s): I25.110 - Atherosclerotic heart disease of [place] coronary artery with unstable angina pectoris - History of Present Illness Consult date: 05/12/17 Requesting physician: Rachael Corrales Consult reason: CABG evaluation. Chief complaint: NSTEMI History of present illness: Mr. Irene is a 51 year old hypertensive man with known CAD who presented to [facility] emergency department last evening with a 2 day history of exertional substernal chest pain radiating to his left neck and associated shortness of breath, dyspnea on exertion, cough, and diaphoresis. The patient's cardiac history dates back to 2009 at which time he underwent stent placement in the LAD and RCA. The patient was on Plavix for 1 year after the stent placement and this was stopped by his semiautomatic stitcher operator. He states that he had done well until last weekend when he developed a cough while working in the yard. At that time he had no substernal chest pain. The pain then developed 2 days ago and was initially associated with exertion; however, yesterday the patient had pain at rest. He was evaluated at [facility] emergency department and found to have elevated troponin I levels consistent with an acute NSTEMI. He was treated medically and admitted for further cardiac workup. He underwent cardiac catheterization today was found to have severe three- vessel CAD and LVEF 50%. In particular the patient has a 90-95% distal left main lesion with encroachment into the LAD, RI, and LCx ostia. In addition, the patient has a 99% mid LCx lesion and a completely occluded mid RCA which fills distally via [id number] collaterals. The patient has been recommended for emergent CABG given the location and severity of the lesions. Past Med Surg Social Fam HX - Past Medical History Medical history: coronary artery disease, hypertension, myocardial infarction - Past Surgical History Surgical History: orthopedic, other (Left knee arthrotomy and repair of medial collateral ligament.) - Social History Smoking Status: Never smoker Smokeless Tobacco Status: Yes Alcohol use: rarely Drug use: none Occupational status: retired Current living situation: Home - Independent Activity Level: Independent ambulation Recent Out of Country Travel Within the Last 8 Weeks: No Exposure or Possible Exposure to Illness During Travel: No - Family History Mother Age: 70 Family Member Ethnicity: Non- Living Status: Still Living Hx Family Endocrine Disorder: Yes Father Age: 75 Family Member Ethnicity: Non- Living Status: Still Living Hx Family Cancer: Yes (prostate cancer) Medications and Allergies Aspirin Enteric Coated [Aspirin EC] 81 mg PO DAILY 05/11/17 [History] Lisinopril [Zestril] 40 mg PO DAILY 05/11/17 [History] Metoprolol Succinate 100 mg PO DAILY 05/11/17 [History] Omeprazole [PriLOSEC] 20 mg PO DAILY 05/11/17 [History] hydroCHLOROthiazide [Hydrochlorothiazide] 25 mg PO QAM 05/11/17 [History] 3 Allergy/AdvReac Type Severity Reaction Status Date / Time No Known Allergies Allergy Unverified 07/06/15 11:36 All Systems Review: A 10-system review of systems was performed and is negative for pertinent findings except as documented above in the HPI. Physical Examination Vital Signs, Last 4 Hours Pulse Ox 05/12/17 09:37 96 General: Conversant, No Apparent Distress HEENT: Atraumatic, Normocephaly, Trachea midline Neck: No JVD, Normal carotid pulses Cardiac: Reg Rate and Rhythm, Normal S1 and S2, No Murmur Lungs: Normal Breath Sounds, No Wheeze, Rales, Rhonchi Neuro: Alert and responsive, No focal deficits noted Vascular: Normal capillary refill Abdomen: Soft, Non-tender Extremities: No Clubbing, No Cyanosis, No Edema Results 05/11/17 21:03 05/12/17 04:43 Lab Results, Last 24 hours 05/12/17 05/12/17 05/12/17 04:43 04:43 04:43 APTT 60.3 H D Sodium 139 Potassium 3.5 Chloride 103 Carbon Dioxide 27 BUN 23 Creatinine 1.16 Glucose 118 H Calcium 9.5 Magnesium 2.0 AST ALT Troponin I 0.26 H* 05/12/17 05/12/17 05/12/17 10:26 10:26 10:27 APTT 44.6 H Sodium Potassium Chloride Carbon Dioxide BUN Creatinine Glucose Calcium Magnesium AST 34 ALT 69 H Troponin I 0.22 H* Consult Discharge Plan - Plan Referrals: Lizette Cho LOOM BLOWER [Primary Care Provider] -
[2017-05-12] MEDS ORDERED: Aspirin 81 MG TAB.CHEW PO ONE (12:33)
[2017-05-12] MEDS ORDERED: ceFAZolin 2,000 MG in D5% in Water 100 ML IVPB ONE (12:33)
[2017-05-12 12:54] LABS: Basophils % 0.4 %; Eosinophils # 0.2 K/mcL (0.0-0.6); Eosinophils % 3.2 %; Hematocrit 45.3 % (37.5-50.1); Hemoglobin 16.2 g/dL (12.9-16.9); Immature Granulocytes % 0.4 % (0-4); Lymphocytes # 1.6 K/mcL (0.6-4.6); Lymphocytes % 31.2 %; Mean Corpuscular HGB Conc 35.8 g/dL (31.6-35.5); Mean Corpuscular Hemoglobin 30.9 pg (28.0-33.3); Mean Corpuscular Volume 86.5 fL (83.0-100.0); Monocytes # 0.5 K/mcL (0.0-1.3); Monocytes % 10.7 %; Neutrophils # 2.7 K/mcL (1.6-8.9); Platelet Count 118 K/mcL (140-400); Red Blood Count 5.24 M/mcL (4.19-5.50); Red Cell Distribution Width 13.3 % (11.5-14.5); Segmented Neutrophils % 54.1 %
[2017-05-12 12:59] LABS: INR 1.1
[2017-05-12 13:02] LABS: Activated Partial Thrombo Time 31.2 Seconds (26.0-36.0)
[2017-05-12 13:06] LABS: Prothrombin Time 12.2 Seconds (9.4-12.1)
[2017-05-12 13:09] LABS: BUN/Creatinine Ratio 19 (6-26); Blood Urea Nitrogen 21 mg/dL (8-26); Calcium 9.6 mg/dL (8.6-10.8); Carbon Dioxide 26 mEq/L (19-29); Chloride 103 mEq/L (98-109); Chol/HDL Ratio 5.3 (0-4.9); Cholesterol 190 mg/dL (< 200); Glucose 108 mg/dL (70-99); HDL Cholesterol 36 mg/dL (40-59); LDL Cholesterol,Calculated 113 mg/dL (0-99); Osmolality,Calculated 290 (280-300); Potassium 3.8 mEq/L (3.5-4.5); Sodium 138 mEq/L (136-145); Triglycerides 203 mg/dL (< 150); eGFR For African Americans > 60 (> 60); eGFR For Non-African Americans > 60 (> 60)
[2017-05-12] MEDS ORDERED: NiCARdipine 2.5 MG/10 ML Syringe IVPB ONE (13:53)
--- NOTE | 2017-05-12 14:02 | Anesthesia Procedures ---
Date of Encounter: 05/12/17 Time of Encounter: 13:30 Procedures: Anesthesia - Central Line Placement Right IJ Consent obtained: written consent Time out performed: Yes Patient placed on monitor/pulse ox: Yes MD prep: mask, gown, gloves Central line prep: Chlorhexidine scrub Ultrasound used for placement: Yes Technique: Seldinger Lumen Inserted: Introducer Post procedure: sutured in place, good blood return, all ports aspirated, flushed, capped, sterile dressing applied Patient tolerated procedure: well, no complications Complications: none (attempt x 1, introducer placed easily, swan advanced easily without dysrythmia. Wedge approx 50cm)
[2017-05-12] MEDS ORDERED: Albumin Human 5% 25.0 GM/500 ML VIAL ONE (15:42)
[2017-05-12] MEDS ORDERED: *HR* Amiodarone 150 MG/3 ML VIAL IVPB ONE (16:19)
[2017-05-12] MEDS ORDERED: Amiodarone Premix 360 MG/200 ML BAG IVC ONE ×2 (16:19→19:16)
--- NOTE | 2017-05-12 18:04 | Operative Note ---
Date of procedure: 05/12/17 Pre-op diagnosis: NSTEMI Post-op diagnosis: same Procedure: 1. CABG 5 (BOBBY to LAD, sequential SVG to D1 then distal LCx, SVG to ramus intermedius, SVG to PDA). 2. Endoscopic vein harvesting, greater saphenous vein from right lower extremity. Implants: None. Complications: None. Anesthesia: JOSIE Surgeon: Gilberto Wylie Military Source Operations Officer: Khoi Massey Specimen: None. Condition: stable Disposition: ICU Procedure in Detail: INDICATIONS FOR OPERATION: The patient is a 51-year-old hypertensive man with known CAD who presented with a 2 day history of exertional substernal chest pain radiating to his left neck. During his evaluation in the emergency department the patient was noted to have elevated troponin I levels consistent with an acute NSTEMI. Cardiac catheterization performed today revealed severe 3 vessel CAD and an LVEF 50%. The patient has been recommended for emergent CABG. FINDINGS AT OPERATION: The aorta was of normal caliber without calcification. The coronary arteries measure approximately 2-3 mm in diameter had mild distal disease. The A1 branch , ramus intermediate branch, and PDA branch were all intramyocardial. The greater saphenous vein was harvested endoscopically from the right lower extremity from the mid calf to the groin it was of good quality. The total bypass time was 127 minutes, cross-clamp time 73 minutes, regional hypothermia 33C. DESCRIPTION OF OPERATION: After obtaining informed consent from the patient, he was taken to the operative risk satisfactory general endotracheal anesthetic was induced. Appropriate monitoring lines were placed, and the patient's chest, abdomen, and lower extremities were prepped and draped in a sterile fashion. The greater saphenous vein was harvested endoscopically from the right lower extremity from the mid calf to the groin. The vein was removed, distended, and found to be of good quality. The subcutaneous tissue and skin edges were reapproximated running Vicryl sutures. Simultaneously, a standard medium sternotomy incision was made and the sternum divided. The BOBBY was taken out from its bed and side branches hemoclips. The sternum was and the pericardium opened and reflected laterally. The patient was prepared for cannulation by placing pursestring sutures in the distal ascending aorta, mid-ascending aorta, and right atrial appendage. The patient was heparinized and when the ACT was greater than 200 seconds, the distal ascending aorta was cannulated followed by placement of dual stage venous cannula through the right atrial appendage and into the inferior vena cava. A stab-in antegrade metabolic and was placed in the mid-ascending aorta. The patient was placed on bypass and the temperature allowed to drift to 33C. The distal targets were identified and the aorta was crossclamped. The patient received 700 mL of cold antegrade crystalloid cardioplegia through the aortic root and the patient's heart obtained rapid diastolic arrest. The PDA was identified; however, was found to be intramyocardial throughout most of its course. The soft area of vein distal to the RCA stents was identified and opened with a [place] blade. The vein was anastomosed in an end-to -side fashion to the PDA using running 7-0 Prolene suture. The anastomosis found to be hemostatic and the patient received another dose of cold antegrade crystalloid cardioplegia through the aortic root (due to resumption of electrical activity). The distal LCx open the bladder blade and the vein was anastomosed in an end-to-side fashion using running 7-0 Prolene suture. The anastomosis was found to be hemostatic. The D1 branch which was intramyocardial throughout most of its course was opened with a [place] blade and the vein was opened in a longitudinal fashion so that the [id number] anastomosis could be completed using a running 7-0 Prolene suture. The anastomosis found to be hemostatic. The ramus intermediate branch which was also intramyocardial throughout most of its course was identified and opened with a [place] blade. The vein was anastomosed in end-to-side fashion using running 7-0 Prolene suture. The anastomosis was found to be hemostatic. The LAD was opened [place] blade and the BOBBY was anastomosed in an end-to-side fashion using running 7-0 Prolene suture. Anastomosis found to be hemostatic and the mammary pedicle was tacked to the epicardium using interrupted 5-0 silk suture. Rewarming was begun during this anastomosis. Aortic cross-clamp was released and the heart distended. The veins were measured and cut at appropriate lengths. The vein graft to the ramus intermediate branch was not of sufficient length to be anastomosed primarily to the aorta. A partial occluding clamp was placed across the mid-ascending aorta and the antegrade cardioplegia cannula was removed. An additional aortotomy site was made with an 11 blade and both sites were enlarged with a 4mm punch. The sequential vein graft and the vein graft to the RCA were anastomosed in end- to-side fashion to the aorta using a running 5-0 Prolene suture. The vein grafts were occluded with bulldog clamp and de-aired with a 25-gauge needle prior to removing the partial occluding clamp. The vein graft to the ramus intermediate branch was anastomosed in an end-to-side fashion to the sequential vein graft using a running 7-0 Prolene suture. The proximal distal anastomoses were found to be hemostatic and the proximal anastomoses were marked with radiopaque loops. Two right ventricular temporary epicardial pacing were placed , and 3 chest tubes were placed, 2 in the mediastinum and one to the left pleural space. During rewarming the patient's heart rhythm degenerated to ventricular fibrillation and required two 10 J direct current shocks followed by two 20 J direct current shocks in order to regain normal sinus rhythm. He was given an amiodarone bolus followed by a amiodarone drip. When the patient's systemic temperature reached 36C he was ventilated and received volume. He was then weaned from bypass and required no inotropic support. Protamine was administered and the aortic and venous cannulae were removed. Both the aortic and venous cannulation sites were reinforced with running 4-0 Prolene suture. The pericardium was loosely approximated in the midline. The sternum was reapproximated using doubled wires. The pectoralis major fascia, rectus abdominis fascia, subcutaneous tissue, and skin edges were reapproximated using running Vicryl sutures. Steri-Strips and a negative pressure sterile dressing were applied to the sternotomy incision. The [place] introducer site was bleeding and a 4-0 Prolene pursestring suture was placed around the introducer. Hemostasis was obtained. The patient was transferred to the ICU in satisfactory postoperative condition. There were no intraoperative complications, and the instrument, needle, and sponge count were correct at end of operation. - Open Heart Detail CONI (Internal Mammary Artery) Usage: Yes Cardiopulmonary Bypass Time (mins): 127 Aortic Cross Clamp Time (mins): 73 Intentional Hypothermia Temperature (C.): 33
[2017-05-12] MEDS ORDERED: Calcium Chloride 1,000 MG in 0.9 % Sodium Chloride 100 ML IVPB PRN (19:16)
[2017-05-12] MEDS ORDERED: *HR* Dextrose 50 % in Water (Syg) 50 ML SYRINGE IVP PRN (19:16)
[2017-05-12] MEDS ORDERED: Magnesium Sulfate 2 GM in D5% in Water 100 ML IVPB PRN (19:16)
[2017-05-12] MEDS ORDERED: Potassium Chloride 40 MEQ/200 ML BAG IVPB PRN (19:16)
[2017-05-12] MEDS ORDERED: Acetaminophen 650 MG RECTAL SUPP RC PRN (19:16)
[2017-05-12] MEDS ORDERED: Insulin Human Regular 300 UNIT/3 ML per UNIT IV PRN (19:16)
--- NOTE | 2017-05-12 19:26 | Internal Med Progress Note ---
Date of Encounter: 05/12/17 Time of Encounter: 19:15 - Assessment and plan (1) Chest pain Current Visit: Yes Status: Acute Assessment and plan: Patient admitted for chest pain. 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 EKG was normal sinus with ST depression and mild ST elevation in V1 to V3. Cardiothoracic consults, patient had CABG today. Qualifiers: Ischemic chest pain type: stable angina pectoris Qualified Code(s): I20.8 - Other forms of angina pectoris (2) Elevated troponin Current Visit: Yes Status: Acute Assessment and plan: Troponins elevated on admission, 0.27, 0.26, 0.22. Patient was placed on heparin drip by admitting physician. (3) ST elevation Current Visit: Yes Status: Acute Assessment and plan: On EKG. Leads V1, V2, V3. (4) DVT prophylaxis Current Visit: Yes Status: Acute Assessment and plan: The patient on heparin drip, SCDs. Patient is in ICU at this time. (5) Hypertension Current Visit: Yes Status: Chronic Assessment and plan: Per history. Continue home medications prior to discharge. Qualifiers: Hypertension type: essential hypertension Qualified Code(s): I10 - Essential (primary) hypertension (6) CAD (coronary artery disease) Current Visit: Yes Status: Chronic Assessment and plan: Patient with CABG today. Qualifiers: Coronary Disease-Associated Artery/Lesion type: [place] artery [place] vs. transplanted heart: [place] heart Associated angina: with unstable angina Qualified Code(s): I25.110 - Atherosclerotic heart disease of [place] coronary artery with unstable angina pectoris (7) NSTEMI (non-ST elevated myocardial infarction) Current Visit: Yes Status: Acute Assessment and plan: Patient had mild ST elevation in V1, V2, V3, with chest pain and elevated troponins. Patient had LHC this morning and immediately to surgery for emergent CABG. Patient in ICU at this time under the care of Dr. Wylie. - Time Spent With Patient less than 15 minutes - Subjective Interval history: I was aware of patient's elevated troponins this morning, I consulted cardiology , I was unable to see him prior to him going to the [employer]. I was not made aware of him going to the Lab this morning by primary nurse. Patient has left unit by about 10 AM area Patient was then immediately taken for 5 vessel CABG. I did not get to see him until he returned to the ICU at about 1915 p.m. He is intubated and I was unable to find his family either in the surgery waiting room or the ICU waiting room. - Constitutional Vitals: Temp Pulse Resp BP Pulse Ox 97.8 F 65 15 143/93 96 05/12/17 07:07 05/12/17 07:07 05/12/17 07:07 05/12/17 07:07 05/12/17 09:37 - Head Head exam: Present: normal inspection, normocephalic - ENT ENT exam: Present: mucous membranes moist - Respiratory Additional comments: Patient is on ventilator. Internal Medicine: Result - Labs CBC & Chem 7: 05/12/17 12:46 05/12/17 12:46 Labs: Short CBC 05/12/17 Range/Units 12:46 WBC 5.0 (4.3-11.1) K/mcL Hgb 16.2 (12.9-16.9) g/dL Hct 45.3 (37.5-50.1) % Plt Count 118 L (140-400) K/mcL Neutrophils # 2.7 (1.6-8.9) K/mcL BMP 05/12/17 05/12/17 04:43 12:46 Sodium 139 138 Potassium 3.5 3.8 Chloride 103 103 Carbon Dioxide 27 26 BUN 23 21 Creatinine 1.16 1.13 Glucose 118 H 108 H Calcium 9.5 9.6 Cardiac Enzymes 05/12/17 05/12/17 Range/Units 04:43 10:26 Troponin I 0.26 H* 0.22 H* (0-0.03) ng/mL Liver Function 05/12/17 Range/Units 10:26 AST 34 (5-34) Units/L ALT 69 H (0-55) Units/L - ABG Interpretation ABG results: PT/INR, D-dimer PT 12.2 Seconds (9.4-12.1) H 05/12/17 12:46 - Impressions Impressions Echocardiogram 05/12/17 09:47 Impressions: LVEF 45%. Normal LV chamber size and wall thickness. Normal right ventricular structure and function. segmental left ventricular systolic dysfunction. Unable to estimate RVSP due to lack of TR jet. No significant valvular dysfunction. Left Ventricular Wall Motion: Rest Echo Findings The apical inferior, apical septal and mid inferior septal ordonez were hypokinetic. All other wall segments showed normal motion. Findings: Study Quality * Technically adequate exam. ECG Findings * Normal sinus rhythm. Left Ventricle * LVEF 45%. * Normal LV chamber size and wall thickness. * Segmental left ventricular systolic dysfunction. Right Ventricle * Normal right ventricular structure and function. Left Atrium * Mild to moderately dilated left atrium. Right Atrium * Mildly dilated right atrium. Interatrial Septum * Interatrial septum not well evaluated. Aortic Valve * Trileaflet aortic valve. Grosslly, it appears mildly sclerotic. * No aortic regurgitation. * No aortic stenosis. Mitral Valve * Normal mitral valve structure and function. * No mitral regurgitation. * No mitral stenosis. Tricuspid Valve * Normal tricuspid valve structure and function. * Trace tricuspid regurgitation. * Unable to estimate RVSP due to lack of TR jet. Pulmonic Valve * Pulmonic valve not well visualized. Aorta * Normally sized aortic root. Pericardium * The pericardium appears normal. IVC * The IVC is not well evaluated. Pulmonary Artery * Pulmonary artery not well visualized. Chest X-Ray 05/12/17 18:23 IMPRESSION: 1. New 1.5 cm x 0.2 cm metallic foreign body projects over the medial left upper quadrant and may be associated with epicardial pacer leads. The appearance is not suggestive of a surgical needle, but correlation with the needle count is suggested. Critical results were called by Dr. Joe Thurman MD to Gilberto Wylie on 05/12/2017 at 18:40. 2. New endotracheal tube in satisfactory position. 3. Pulmonary vascular congestion and mild cardiomegaly with suspected perihilar edema. 4. New mediastinal widening potentially due to pulmonary hypoinflation. Alternately, this could be related to edema or hematoma in the setting of interim median sternotomy. D/ / Joe Thurman MD / Joe Thurman MD Interpreting Provider: Joe Thurman MD Consult Discharge Plan - Plan Referrals: Lizette Cho SEISMOMETER OPERATOR [Primary Care Provider] -
[2017-05-12] MEDS ORDERED: 0.9 % Sodium Chloride w KCl 20 MEQ/1,000 ML MLS IVC ONE (19:33)
[2017-05-12 19:37] LABS: Hematocrit 35.9 % (37.5-50.1); Mean Corpuscular HGB Conc 35.9 g/dL (31.6-35.5); Mean Corpuscular Hemoglobin 31.2 pg (28.0-33.3); Mean Corpuscular Volume 86.9 fL (83.0-100.0); Mean Platelet Volume 10.2 fL (9.4-12.4); Monocytes # 1.4 K/mcL (0.0-1.3); Platelet Count 142 K/mcL (140-400); Red Blood Count 4.13 M/mcL (4.19-5.50); Red Cell Distribution Width 13.4 % (11.5-14.5)
[2017-05-12 19:39] LABS: Hemoglobin 12.9 g/dL (12.9-16.9)
[2017-05-12 19:40] LABS: ABG Base Excess 0.8 mEq/L (-2.0 to 3.0); ABG HCO3 27 mEq/L (21-27); ABG Oxygen Saturation 98 % (95-98); ABG PCO2 46 mmHg (35-45); ABG PH 7.37 pH Units (7.32-7.45); ABG PO2 101 mmHg (85-104); Blood Gas FiO2 50 %
[2017-05-12 19:45] LABS: INR 1.5
[2017-05-12 19:48] LABS: Activated Partial Thrombo Time 31.8 Seconds (26.0-36.0)
[2017-05-12 19:49] LABS: Prothrombin Time 16.1 Seconds (9.4-12.1)
[2017-05-12 19:54] LABS: BUN/Creatinine Ratio 17 (6-26); Blood Urea Nitrogen 17 mg/dL (8-26); Carbon Dioxide 27 mEq/L (19-29); Chloride 106 mEq/L (98-109); Glucose 116 mg/dL (70-99); Magnesium 2.1 mg/dL (1.6-2.6); Osmolality,Calculated 289 (280-300); Potassium 3.6 mEq/L (3.5-4.5); Sodium 138 mEq/L (136-145); eGFR For African Americans > 60 (> 60); eGFR For Non-African Americans > 60 (> 60)
[2017-05-12 19:55] LABS: Calcium 7.7 mg/dL (8.6-10.8)
[2017-05-12 20:10] LABS: Basophils # 0.3 K/mcL (0.0-0.2); Eosinophils # 0.3 K/mcL (0.0-0.6); Neutrophils # 8.7 K/mcL (1.6-8.9); Platelet Estimate Slight Decrease (Normal); Reactive Lymphocytes Present (Not Present)
[2017-05-12 20:13] LABS: Anisocytosis 1+ (Not Present)
[2017-05-12 20:24] LABS: VBG HCO3 28.3 mEq/L (21-27); VBG PH 7.32 pH Units (7.32-7.42)
[2017-05-12] MEDS: 0.9 % Sodium Chloride w KCl 20 MEQ/1,000 ML MLS IVC SCH (20:34)
[2017-05-12] MEDS: *HR* Morphine 2 MG/ML SYRINGE IVP PRN ×2 (20:48→21:30)
[2017-05-12] MEDS: Insulin Human Regular 100 UNIT in 0.9 % Sodium Chloride 100 ML IVC SCH (20:51)
[2017-05-12] MEDS: Norepinephrine 4 MG in D5% in Water 250 ML IVC SCH (21:30)
[2017-05-12] MEDS: Amiodarone Premix 360 MG/200 ML BAG IVC SCH (22:07)
[2017-05-12] MEDS: niCARdipine 40 MG/200 ML MLS IVC SCH (22:14)
[2017-05-12] MEDS: Chlorhexidine Rinse 15 ML MOUTHWASH MM SCH (22:59)
[2017-05-12] MEDS: Pantoprazole 40 MG VIAL IVP SCH (22:59)
[2017-05-13] MEDS: *HR* Morphine 2 MG/ML SYRINGE IVP PRN ×5 (00:01→20:44)
[2017-05-13 00:02] LABS: ABG Base Excess 3.2 mEq/L (-2.0 to 3.0); ABG HCO3 27 mEq/L (21-27); ABG Oxygen Saturation 99 % (95-98); ABG PCO2 37 mmHg (35-45); ABG PH 7.47 pH Units (7.32-7.45); ABG PO2 142 mmHg (85-104); Blood Gas FiO2 40 %
[2017-05-13 00:02] LABS: Hematocrit 30.3 % (37.5-50.1)
[2017-05-13] MEDS: ceFAZolin 2,000 MG in D5% in Water 100 ML IVPB SCH ×2 (00:02→09:27)
[2017-05-13] MEDS: Metoclopramide 10 MG/2 ML VIAL IVP SCH ×5 (00:03→23:41)
[2017-05-13] MEDS: Ketorolac 15 MG/ML VIAL IVP SCH ×6 (00:04→17:15)
[2017-05-13 00:18] LABS: Magnesium 2.3 mg/dL (1.6-2.6)
[2017-05-13] MEDS: niCARdipine 40 MG/200 ML MLS IVC SCH ×3 (03:12→19:41)
[2017-05-13 03:30] LABS: Basophils % 0.2 %; Eosinophils % 0.2 %; Hematocrit 30.5 % (37.5-50.1); Hemoglobin 10.8 g/dL (12.9-16.9); Immature Granulocytes % 0.5 % (0-4); Lymphocytes # 1.3 K/mcL (0.6-4.6); Lymphocytes % 11.8 %; Mean Corpuscular HGB Conc 35.4 g/dL (31.6-35.5); Mean Corpuscular Volume 87.6 fL (83.0-100.0); Monocytes # 1.5 K/mcL (0.0-1.3); Monocytes % 13.4 %; Neutrophils # 8.3 K/mcL (1.6-8.9); Platelet Count 134 K/mcL (140-400); Red Blood Count 3.48 M/mcL (4.19-5.50); Red Cell Distribution Width 13.8 % (11.5-14.5); Segmented Neutrophils % 73.9 %
[2017-05-13 03:32] LABS: ABG Base Excess 3.5 mEq/L (-2.0 to 3.0); ABG HCO3 28 mEq/L (21-27); ABG Oxygen Saturation 95 % (95-98); ABG PCO2 40 mmHg (35-45); ABG PH 7.45 pH Units (7.32-7.45); ABG PO2 71 mmHg (85-104)
[2017-05-13 03:33] LABS: Blood Gas FiO2 30 %
[2017-05-13 03:38] LABS: INR 1.3; Prothrombin Time 14.4 Seconds (9.4-12.1)
[2017-05-13 03:41] LABS: Activated Partial Thrombo Time 29.2 Seconds (26.0-36.0)
[2017-05-13 03:44] LABS: BUN/Creatinine Ratio 12 (6-26); Blood Urea Nitrogen 16 mg/dL (8-26); Calcium 7.7 mg/dL (8.6-10.8); Carbon Dioxide 24 mEq/L (19-29); Chloride 105 mEq/L (98-109); Glucose 132 mg/dL (70-99); Magnesium 2.2 mg/dL (1.6-2.6); Osmolality,Calculated 289 (280-300); Potassium 3.9 mEq/L (3.5-4.5); Sodium 138 mEq/L (136-145); eGFR For African Americans > 60 (> 60); eGFR For Non-African Americans 55 (> 60)
[2017-05-13 05:08] LABS: ABG Base Excess 4.5 mEq/L (-2.0 to 3.0); ABG HCO3 28 mEq/L (21-27); ABG Oxygen Saturation 92 % (95-98); ABG PCO2 38 mmHg (35-45); ABG PH 7.48 pH Units (7.32-7.45); ABG PO2 59 mmHg (85-104); ABG TCO2 29.5 mEq/L (20-26)
[2017-05-13 05:09] LABS: Blood Gas FiO2 28 %; Blood Gas Liter Flow 2 L/MIN
[2017-05-13] MEDS: Norepinephrine 4 MG in D5% in Water 250 ML IVC SCH (05:58)
--- NOTE | 2017-05-13 07:50 | Cardiothoracic Progress Note ---
Date of Encounter: 05/13/17 Time of Encounter: 07:45 - Assessment and plan (1) CAD (coronary artery disease) Current Visit: Yes Status: Chronic The patient is recovering well from his CABG 5. He is currently extubated and breathing comfortably. He is on a Levophed drip for increased vascular tone. This will be weaned today as tolerated. The patient also has a right femoral artery line which will be removed when the Levophed drip has been discontinued and the patient has a proven stable blood pressure. The patient will then be able to sit at the side of the bed and chair. He will remain in the ICU today for close monitoring. The assessment and plan as outlined above was discussed with the patient and/or family members who expressed understanding and agreement. All questions were answered. Qualifiers: Coronary Disease-Associated Artery/Lesion type: [place] artery [place] vs. transplanted heart: [place] heart Associated angina: with unstable angina Qualified Code(s): I25.110 - Atherosclerotic heart disease of [place] coronary artery with unstable angina pectoris - Subjective Procedure(s) Performed: POD#1 S/P CABG5 Interval history: The patient remained hemodynamic stable overnight. He is currently extubated and breathing comfortably. He is on low-dose Levophed for increased vascular tone. Vital Signs, Last 4 Hours Temp Pulse Resp BP Pulse Ox 05/13/17 07:23 93 05/13/17 07:00 87 18 107/57 93 05/13/17 06:00 90 18 112/60 93 05/13/17 05:00 101 F H 93 20 110/59 93 05/13/17 04:00 101 F H 96 18 110/61 93 Oxgyen Flow Rate Oxygen Flow Rate (LPM) 2 Clinical Data, last 8 Hours Output, Chest Tube Drainage 20 Amount [#1] Output, Chest Tube Drainage 40 Amount [#1] Output, Chest Tube Drainage 20 Amount [#1] Output, Chest Tube Drainage 30 Amount [#1] Output, Chest Tube Drainage 20 Amount [#1] Output, Chest Tube Drainage 25 Amount [#1] Output, Chest Tube Drainage 15 Amount [#1] Output, Chest Tube Drainage 30 Amount [#1] Output, Chest Tube Drainage 0 Amount [#2] Output, Chest Tube Drainage 0 Amount [#2] Output, Chest Tube Drainage 0 Amount [#2] Output, Chest Tube Drainage 0 Amount [#2] Output, Chest Tube Drainage 0 Amount [#2] Output, Chest Tube Drainage 0 Amount [#2] Output, Chest Tube Drainage 0 Amount [#2] Output, Chest Tube Drainage 0 Amount [#2] Weight 05/11/17 05/12/17 05/13/17 23:59 23:59 23:59 Weight 116.8 kg - Physical Examination General: Conversant, No Apparent Distress Neck: No JVD, Normal carotid pulses Cardiac: Reg Rate and Rhythm, Normal S1 and S2, No Murmur Incision: No signs of infection, Dry/intact dressing Sternum: Stable Chest tubes: Minimal drainage, Other (No air leak.) Pacing Wires: In place Lungs: Normal Breath Sounds, No Wheeze, Rales, Rhonchi Neuro: Alert and responsive, No focal deficits noted Vascular: Normal capillary refill Extremities: No Clubbing, No Cyanosis, No Edema - Labs 05/13/17 03:25 05/13/17 03:25 Lab Results, Last 24 hours 05/12/17 05/12/17 05/12/17 10:26 10:26 10:27 WBC Hgb Hct Plt Count INR APTT 44.6 H Sodium Potassium Chloride Carbon Dioxide BUN Creatinine Glucose Calcium Magnesium AST 34 ALT 69 H Troponin I 0.22 H* 05/12/17 05/12/17 05/12/17 12:46 12:46 12:46 WBC 5.0 Hgb 16.2 Hct 45.3 Plt Count 118 L INR 1.1 APTT 31.2 Sodium 138 Potassium 3.8 Chloride 103 Carbon Dioxide 26 BUN 21 Creatinine 1.13 Glucose 108 H Calcium 9.6 Magnesium AST ALT Troponin I 05/12/17 05/12/17 05/12/17 17:25 19:25 19:25 WBC 13.6 H D Hgb 12.9 D Hct 35.9 L Plt Count 142 INR 1.5 APTT 31.8 Sodium 138 Potassium 3.6 Chloride 106 Carbon Dioxide 27 BUN 17 Creatinine 1.01 Glucose 116 H Calcium 7.7 L D Magnesium 2.1 AST ALT Troponin I 05/12/17 05/12/17 05/13/17 23:50 23:50 03:25 WBC 11.2 H Hgb 11.0 L D 10.8 L Hct 30.3 L 30.5 L Plt Count 134 L INR APTT Sodium Potassium 4.0 Chloride Carbon Dioxide BUN Creatinine Glucose Calcium Magnesium 2.3 AST ALT Troponin I 05/13/17 05/13/17 03:25 03:25 WBC Hgb Hct Plt Count INR 1.3 APTT 29.2 Sodium 138 Potassium 3.9 Chloride 105 Carbon Dioxide 24 BUN 16 Creatinine 1.37 H Glucose 132 H Calcium 7.7 L Magnesium 2.2 AST ALT Troponin I - Imaging Chest Xray: image reviewed (No pneumothorax. Small left pleural effusion.) Consult Discharge Plan - Plan Referrals: Lizette hCo CNP [Primary Care Provider] -
[2017-05-13] MEDS ORDERED: Acetaminophen 325 MG TABLET PO PRN (07:58)
[2017-05-13] MEDS ORDERED: Aspirin Enteric Coated 81 MG Tablet PO SCH (09:00)
[2017-05-13] MEDS: *HR* OxyCODONE/APAP 5/325 TABLET PO PRN ×2 (09:26→17:15)
[2017-05-13] MEDS: Furosemide 20 MG/2 ML VIAL IVP SCH ×2 (09:27→17:19)
[2017-05-13] MEDS: Pantoprazole 40 MG VIAL IVP SCH (09:27)
[2017-05-13] MEDS: Chlorhexidine Rinse 15 ML MOUTHWASH MM SCH (09:27)
[2017-05-13] MEDS: Amiodarone Premix 360 MG/200 ML BAG IVC SCH ×2 (09:30→20:43)
[2017-05-13 10:01] LABS: Hemoglobin A1C 5.6 %
[2017-05-13] MEDS: 0.9 % Sodium Chloride w KCl 20 MEQ/1,000 ML MLS IVC SCH (17:19)
[2017-05-13] MEDS: Insulin Human Regular 100 UNIT in 0.9 % Sodium Chloride 100 ML IVC SCH (19:41)
[2017-05-13] MEDS ORDERED: Insulin LISPRO 300 UNITS/3 ML VIAL SQ SCH (21:30)
[2017-05-13] MEDS ORDERED: D5% in Water 1,000 ML IVC PRN (21:30)
[2017-05-14] MEDS: *HR* OxyCODONE/APAP 5/325 TABLET PO PRN (00:23)
[2017-05-14] MEDS: Ketorolac 15 MG/ML VIAL IVP SCH ×2 (00:23→05:52)
[2017-05-14] MEDS: niCARdipine 40 MG/200 ML MLS IVC SCH (00:23)
[2017-05-14] MEDS: *HR* Morphine 2 MG/ML SYRINGE IVP PRN (04:01)
[2017-05-14 04:47] LABS: Basophils % 0.1 %; Eosinophils % 0.3 %; Hematocrit 28.2 % (37.5-50.1); Hemoglobin 9.6 g/dL (12.9-16.9); Immature Granulocytes % 0.4 % (0-4); Lymphocytes # 1.6 K/mcL (0.6-4.6); Lymphocytes % 17.3 %; Mean Platelet Volume 11.5 fL (9.4-12.4); Monocytes % 10.4 %; Neutrophils # 6.7 K/mcL (1.6-8.9); Red Cell Distribution Width 14.2 % (11.5-14.5); Segmented Neutrophils % 71.5 %
[2017-05-14 05:30] LABS: Platelet Count 93 K/mcL (140-400)
[2017-05-14] MEDS: Metoclopramide 10 MG/2 ML VIAL IVP SCH ×3 (05:52→18:12)
--- NOTE | 2017-05-14 07:19 | Cardiothoracic Progress Note ---
Date of Encounter: 05/14/17 Time of Encounter: :17 - Assessment and plan (1) CAD (coronary artery disease) Current Visit: Yes Status: Chronic The patient is recovering well from his CABG 5. The chest tubes were removed. The patient will be transferred to the stepdown unit when a bed is available. The assessment and plan as outlined above was discussed with the patient and/or family members who expressed understanding and agreement. All questions were answered. Qualifiers: Coronary Disease-Associated Artery/Lesion type: [place] artery [place] vs. transplanted heart: [place] heart Associated angina: with unstable angina Qualified Code(s): I25.110 - Atherosclerotic heart disease of [place] coronary artery with unstable angina pectoris - Subjective Procedure(s) Performed: POD#2 S/P CABG5 Interval history: The patient remained hemodynamic stable overnight. He is sitting in a chair at the bedside and breathing comfortably. Vital Signs, Last 4 Hours Temp Pulse Resp BP Pulse Ox 05/14/17 06:00 93 16 113/68 90 05/14/17 05:00 92 20 96/59 90 05/14/17 04:52 98.3 F 05/14/17 04:35 83 05/14/17 04:08 16 90 05/14/17 04:00 93 18 111/69 93 Oxgyen Flow Rate Oxygen Flow Rate (LPM) 3 Clinical Data, last 8 Hours Output, Chest Tube Drainage 50 Amount [#1] Output, Chest Tube Drainage 30 Amount [#1] Output, Chest Tube Drainage 10 Amount [#2] Output, Chest Tube Drainage 2 Amount [#2] Weight 05/12/17 05/13/17 05/14/17 23:59 23:59 23:59 Weight 116.8 kg - Physical Examination General: Conversant, No Apparent Distress Neck: No JVD, Normal carotid pulses Cardiac: Reg Rate and Rhythm, Normal S1 and S2, No Murmur Incision: No signs of infection, Dry/intact dressing Sternum: Stable Chest tubes: Minimal drainage, Other (No air leak.) Lungs: Normal Breath Sounds, No Wheeze, Rales, Rhonchi Neuro: Alert and responsive, No focal deficits noted Vascular: Normal capillary refill Extremities: No Clubbing, No Cyanosis, No Edema, Normal Pulses - Labs 05/14/17 03:58 05/14/17 03:58 Lab Results, Last 24 hours 05/14/17 05/14/17 03:58 03:58 WBC 9.4 Hgb 9.6 L Hct 28.2 L Plt Count 93 L Sodium 140 Potassium 4.0 Chloride 104 Carbon Dioxide 27 BUN 25 Creatinine 1.66 H Glucose 142 H Calcium 8.0 L - Imaging Chest Xray: image reviewed (No pneumothorax. Minimal left lower lobe atelectasis.) - VTE Documentation of Mechanical Device: Graduated compression elastic hosiery Consult Discharge Plan - Plan Referrals: Lizette Cho ENTERPRISE ACCOUNT EXECUTIVE [Primary Care Provider] -
[2017-05-14] MEDS ORDERED: Insulin LISPRO 300 UNITS/3 ML VIAL SQ SCH (07:30)
[2017-05-14] MEDS ORDERED: D5% in Water 1,000 ML IVC PRN (08:01)
[2017-05-14] MEDS ORDERED: Insulin Human Regular 300 UNIT/3 ML per UNIT IV PRN (08:01)
[2017-05-14] MEDS ORDERED: Nitroglycerin 0.4 MG TAB.SUBL SL PRN (08:01)
[2017-05-14] MEDS ORDERED: *HR* Dextrose 50 % in Water (Syg) 50 ML SYRINGE IVP PRN (08:01)
[2017-05-14] MEDS ORDERED: Ondansetron 4 MG/2 ML VIAL IVP PRN (08:01)
[2017-05-14] MEDS ORDERED: *HR* Morphine 2 MG/ML SYRINGE IVP PRN ×2 (08:01)
[2017-05-14] MEDS: Aspirin Enteric Coated 81 MG Tablet PO SCH (10:04)
[2017-05-14] MEDS: Pantoprazole 40 MG VIAL IVP SCH (10:04)
[2017-05-14] MEDS: *HR* Amiodarone 200 MG TABLET PO SCH (10:04)
[2017-05-14] MEDS: Insulin LISPRO 300 UNITS/3 ML VIAL SQ SCH ×2 (12:35→18:10)
[2017-05-14] MEDS: Furosemide 20 MG/2 ML VIAL IVP SCH (18:11)
[2017-05-15] MEDS: Metoclopramide 10 MG/2 ML VIAL IVP SCH ×4 (00:29→18:13)
[2017-05-15] MEDS: Insulin LISPRO 300 UNITS/3 ML VIAL SQ SCH ×5 (00:30→22:14)
[2017-05-15] MEDS: Acetaminophen 325 MG TABLET PO PRN ×2 (04:44→16:12)
[2017-05-15 05:29] LABS: Hematocrit 25.5 % (37.5-50.1); Hemoglobin 8.8 g/dL (12.9-16.9); Immature Granulocytes % 0.3 % (0-4); Immature Platelets 5.4 % (1.1-6.1); Lymphocytes # 0.8 K/mcL (0.6-4.6); Lymphocytes % 12.6 %; Mean Corpuscular HGB Conc 34.5 g/dL (31.6-35.5); Mean Corpuscular Hemoglobin 31.5 pg (28.0-33.3); Mean Corpuscular Volume 91.4 fL (83.0-100.0); Mean Platelet Volume 11.4 fL (9.4-12.4); Monocytes # 0.6 K/mcL (0.0-1.3); Monocytes % 9.1 %; Neutrophils # 5.2 K/mcL (1.6-8.9); Red Blood Count 2.79 M/mcL (4.19-5.50); Red Cell Distribution Width 13.7 % (11.5-14.5)
[2017-05-15 05:33] LABS: Platelet Count 85 K/mcL (140-400)
[2017-05-15 05:42] LABS: Blood Urea Nitrogen 27 mg/dL (8-26); Carbon Dioxide 26 mEq/L (19-29); Chloride 103 mEq/L (98-109); Potassium 3.7 mEq/L (3.5-4.5); Sodium 137 mEq/L (136-145)
[2017-05-15 05:43] LABS: BUN/Creatinine Ratio 21 (6-26); Calcium 8.5 mg/dL (8.6-10.8); Glucose 150 mg/dL (70-99); Osmolality,Calculated 292 (280-300); eGFR For African Americans > 60 (> 60); eGFR For Non-African Americans 59 (> 60)
[2017-05-15] MEDS: Furosemide 20 MG/2 ML VIAL IVP SCH ×2 (08:17→16:12)
--- NOTE | 2017-05-15 08:23 | Cardiothoracic Progress Note ---
Date of Encounter: 05/15/17 Time of Encounter: 08:22 - Assessment and plan (1) CAD (coronary artery disease) Current Visit: Yes Status: Chronic The patient is recovering well from his CABG 5. The chest tubes were removed. The patient will be transferred to the stepdown unit when a bed is available. The assessment and plan as outlined above was discussed with the patient and/or family members who expressed understanding and agreement. All questions were answered. Qualifiers: Coronary Disease-Associated Artery/Lesion type: [place] artery [place] vs. transplanted heart: [place] heart Associated angina: with unstable angina Qualified Code(s): I25.110 - Atherosclerotic heart disease of [place] coronary artery with unstable angina pectoris - Subjective Procedure(s) Performed: POD#3 S/P CABG5 Interval history: The patient remained hemodynamic stable overnight. He is sitting in a chair at the bedside and breathing comfortably. Vital Signs, Last 4 Hours Temp Pulse Resp BP Pulse Ox 05/15/17 08:02 16 93 05/15/17 07:28 98.2 F 05/15/17 06:00 102 28 126/78 91 05/15/17 05:18 100.7 F H Oxgyen Flow Rate Oxygen Flow Rate (LPM) 3 Clinical Data, last 8 Hours Output, Urine Amount 500 Output, Urine Amount 0 Weight 05/13/17 05/14/17 05/15/17 23:59 23:59 23:59 Weight 116.8 kg 112 kg - Physical Examination General: Conversant, No Apparent Distress Neck: No JVD, Normal carotid pulses Cardiac: Reg Rate and Rhythm, Normal S1 and S2, No Murmur Incision: No signs of infection, Dry/intact dressing Sternum: Stable Pacing Wires: In place Lungs: Normal Breath Sounds, No Wheeze, Rales, Rhonchi Neuro: Alert and responsive, No focal deficits noted Vascular: Normal capillary refill Extremities: No Clubbing, No Cyanosis, No Edema - Labs 05/15/17 04:52 05/15/17 04:52 Lab Results, Last 24 hours 05/15/17 05/15/17 04:52 04:52 WBC 6.7 Hgb 8.8 L Hct 25.5 L Plt Count 85 L Sodium 137 Potassium 3.7 Chloride 103 Carbon Dioxide 26 BUN 27 H Creatinine 1.28 H Glucose 150 H Calcium 8.5 L - VTE Documentation of Mechanical Device: Graduated compression elastic hosiery Consult Discharge Plan - Plan Referrals: Lizette Cho, LOPEZ [Primary Care Provider] -
[2017-05-15] MEDS: *HR* Amiodarone 200 MG TABLET PO SCH (08:56)
[2017-05-15] MEDS: Pantoprazole 40 MG VIAL IVP SCH (09:02)
[2017-05-15] MEDS: Aspirin Enteric Coated 81 MG Tablet PO SCH (09:02)
[2017-05-15] MEDS: *HR* OxyCODONE/APAP 5/325 TABLET PO PRN (09:12)
--- NOTE | 2017-05-15 20:58 | Electrocardiograph Report ---
[address] [place] [address] Test Date: 2017-05-11 Pat Name: Didier Irene Department: 102 Room: 2N15 Gender: M Marketing Operations Intern: [facility] : 1965 Requested By: Yobani Gómez Order Number: [id number] Reading MD: Brock Joshua MD Measurements Intervals [place] Rate: 97 P: 40 VA: 163 QRS: 5 QRSD: 96 T: 51 QT: 339 QTc: 394 Interpretive Statements SINUS RHYTHM ANTEROSEPTAL MYOCARDIAL INFARCTION, OF INDETERMINATE AGE Electronically Signed On 05-15-2017 20:57:13 EDT by Brock Joshua MD
--- NOTE | 2017-05-15 21:24 | Electrocardiograph Report ---
[address] [place] [address] Test Date: 2017-05-12 Pat Name: Didier Irene Department: 113 Room: 2N15 Gender: M Diesel Service Apprentice: [place] : 1965 Requested By: Blanco Pro Order Number: [id number] Reading MD: Brock Joshua MD Measurements Intervals [place] Rate: 63 P: 32 HI: 187 QRS: 22 QRSD: 99 T: 55 QT: 395 QTc: 402 Interpretive Statements SINUS RHYTHM ANTEROSEPTAL MYOCARDIAL INFARCTION, OF INDETERMINATE AGE Electronically Signed On 05-15-2017 21:22:53 EDT by Brock Joshua MD
--- NOTE | 2017-05-15 21:30 | Electrocardiograph Report ---
[address] [place] [address] Test Date: 2017-05-12 Pat Name: Didier Irene Department: 109 Room: 2N15 Gender: M Audio/Video Engineer: : 1965 Requested By: Gilberto Wylie Order Number: [id number] Reading MD: Brock Joshua MD Measurements Intervals [place] Rate: 83 P: 56 DE: 168 QRS: 15 QRSD: 101 T: 61 QT: 409 QTc: 449 Interpretive Statements SINUS RHYTHM ANTEROSEPTAL MYOCARDIAL INFARCTION, OF INDETERMINATE AGE Electronically Signed On 05-15-2017 21:29:18 EDT by Brock Joshua MD
[2017-05-16] MEDS: *HR* OxyCODONE/APAP 5/325 TABLET PO PRN ×4 (00:06→22:38)
[2017-05-16] MEDS: Metoclopramide 10 MG/2 ML VIAL IVP SCH (00:06)
[2017-05-16] MEDS: Insulin LISPRO 300 UNITS/3 ML VIAL SQ SCH ×4 (07:39→20:36)
--- NOTE | 2017-05-16 08:05 | Cardiothoracic Progress Note ---
Date of Encounter: 05/16/17 Time of Encounter: 08:03 - Assessment and plan (1) CAD (coronary artery disease) Current Visit: Yes Status: Chronic The patient is recovering well from his CABG 5. The patient was transferred to the stepdown unit late yesterday. He was able to walk in the ICU and in his stepdown room. He will begin ambulating in the hallways today. The assessment and plan as outlined above was discussed with the patient and/or family members who expressed understanding and agreement. All questions were answered. Qualifiers: Coronary Disease-Associated Artery/Lesion type: [place] artery [place] vs. transplanted heart: [place] heart Associated angina: with unstable angina Qualified Code(s): I25.110 - Atherosclerotic heart disease of [place] coronary artery with unstable angina pectoris - Subjective Procedure(s) Performed: POD#4 S/P CABG5 Interval history: The patient remained hemodynamic stable overnight. He was transferred to the stepdown unit late yesterday and was able to walk in both the ICU and in his stepdown room. He is sitting in a chair at the bedside and breathing comfortably. Vital Signs, Last 4 Hours Temp Pulse Resp BP Pulse Ox 05/16/17 07:17 98.4 F 97 20 144/84 97 05/16/17 04:44 18 96 05/16/17 04:30 96 05/16/17 04:29 98.3 F 92 19 146/91 95 [place] Flow Rate Oxygen Flow Rate (LPM) 2 Clinical Data, last 8 Hours Output, Urine Amount 625 Weight 05/14/17 05/15/17 05/16/17 23:59 23:59 23:59 Weight 112 kg 113 kg - Physical Examination General: Conversant, No Apparent Distress Neck: No JVD, Normal carotid pulses Cardiac: Reg Rate and Rhythm, Normal S1 and S2, No Murmur Incision: No signs of infection, Dry/intact dressing Sternum: Stable Pacing Wires: In place Lungs: Normal Breath Sounds, No Wheeze, Rales, Rhonchi Neuro: Alert and responsive, No focal deficits noted Vascular: Normal capillary refill Extremities: No Clubbing, No Cyanosis, No Edema - Labs 05/15/17 04:52 05/15/17 04:52 - VTE Documentation of Mechanical Device: Graduated compression elastic hosiery Consult Discharge Plan - Plan Referrals: Lizette Cho CNP [Primary Care Provider] -
[2017-05-16] MEDS: Aspirin Enteric Coated 81 MG Tablet PO SCH (08:46)
[2017-05-16] MEDS: *HR* Amiodarone 200 MG TABLET PO SCH (08:47)
[2017-05-16] MEDS: Pantoprazole 40 MG VIAL IVP SCH (08:48)
--- NOTE | 2017-05-16 10:10 | Internal Med Progress Note ---
<Rod Dennis - Last Filed: 05/16/17 16:24> Date of Encounter: 05/16/17 Time of Encounter: 10:10 - Assessment and plan (1) NSTEMI (non-ST elevated myocardial infarction) Current Visit: Yes Status: Acute Assessment and plan: Patient presented to the ED on 05/11/17 with complaint of chest discomfort, shortness of breath with exertion, fatigue, and headache for a couple days prior to arrival. Was determined to have ST elevations in V1-V3 and ST depressions in lead II. Troponins were 0.27, 0.26, 0.22. Patient underwent LHC on 05/12/17 which revealed severe 3 vessel CAD and EF of 50%, Dr. Wylie was emergently consulted for CABG. Patient underwent CABG on 05/12/[address] Wylie. POD #4 s/p CABG. Hb 8.8 this morning from 9.6 yesterday. Increased to 9.4 this afternoon. stable Did well overnight, continuing to ambulate on own and improving. Continue medical management. No new medical management recommended at this time. -Continue Metoprolol 25mg bid, statin, and aspirin. -Continue following Hb/Hct. (2) CAD (coronary artery disease) Current Visit: Yes Status: Chronic Assessment and plan: Known history of CAD s/p stents in 2009 was determined to have NSTEMI with severe 3 Vessel CAD with EF 50% on LHC 05/12/17, underwent CABG 05/12/17. -Continue medical management with Beta melissa, statin, and aspirin. Qualifiers: Coronary Disease-Associated Artery/Lesion type: [place] artery [place] vs. transplanted heart: [place] heart Associated angina: with unstable angina Qualified Code(s): I25.110 - Atherosclerotic heart disease of [place] coronary artery with unstable angina pectoris (3) Hypertension Current Visit: Yes Status: Chronic Assessment and plan: Known history of hypertension. Bp 144/84, pulse 97 overnight. Continue cardiac monitoring. -Continue amlodipine. Qualifiers: Hypertension type: essential hypertension Qualified Code(s): I10 - Essential (primary) hypertension (4) Hyperlipidemia Current Visit: Yes Status: Chronic Assessment and plan: Known history of hyperlipidemia and with CAD. Lipid panel returned highly elevated. -Continue statin, increase to Lipitor 80mg qhs. Qualifiers: Hyperlipidemia type: unspecified Qualified Code(s): E78.5 - Hyperlipidemia , unspecified - Subjective Interval history: POD#[address] Wylie. Patient has been doing well and is ambulating in hallways at times. He reports chest pain from the surgery, but no radiation or shortness of breath with exertion. Patient denies fevers, chills, sweats, nausea, vomiting, abdominal pain, changes in bowels or bladder, weakness, or loss of sensation. Patient reports pain of 4/10 severity and well controlled on medications. - Constitutional Vitals: Temp Pulse Resp BP Pulse Ox 98.4 F 97 20 144/84 97 05/16/17 07:17 05/16/17 07:17 05/16/17 07:17 05/16/17 07:05/16/17 07:17 General appearance: Present: A&O X 3, pleasant, no acute distress, answers questions appropriately - Head Head exam: Present: atraumatic, normal inspection, normocephalic - Eye Eye exam: Present: EOMI, normal appearance - ENT ENT exam: Present: mucous membranes moist, normal exam, normal oropharynx - Neck Neck exam general surgery: Present: full ROM, normal inspection, supple, trachea midline. Absent: tenderness - Respiratory Respiratory exam: Present: CTAB. Absent: rales, rhonchi, wheezes - Cardiovascular Cardiovascular exam: Present: RRR, +S1, +S2. Absent: diastolic murmur, JVD, systolic murmur - GI/Abdominal GI/Abdominal exam: Present: normal bowel sounds, soft. Absent: distended, guarding, tenderness - Extremities Exam Extremities exam: Present: full ROM, normal capillary refill, normal inspection , warm, radial pulses palpable and symmetrical. Absent: cyanotic, pedal edema, tenderness - [place] Incision: Present: clean and dry, intact. Absent: erythema Comments: sternal chest incision dressings - Neurological Exam Neurological exam: Present: alert, CN II-XII intact, normal gait, oriented X3, no focal deficits, strengths equal and symetr throughout. Absent: motor sensory deficit, facial droop, speech deficit - Psychiatric Psychiatric exam: Present: normal affect, normal mood - Skin Skin exam: Present: dry, intact, normal color, warm. Absent: rash Internal Medicine: Result - Labs CBC & Chem 7: 05/16/17 11:53 05/15/17 04:52 - ABG Interpretation ABG results: ABG ABG pH 7.48 pH Units (7.32-7.45) H 05/13/17 04:51 ABG pCO2 38 mmHg (35-45) 05/13/17 04:51 ABG pO2 59 mmHg (85-104) L 05/13/17 04:51 ABG O2 Saturation 92 % (95-98) L 05/13/17 04:51 PT/INR, D-dimer PT 14.4 Seconds (9.4-12.1) H 05/13/17 03:25 - VTE Documentation of Mechanical Device: Graduated compression elastic hosiery Consult Discharge Plan - Plan Referrals: Fili Leon CNP [Advanced Practice Nurse] - 06/08/17 1:30 pm Gilberto Wylie MD [Partnered Physician] - 06/15/17 1:40 pm () Lizette Cho CNP [Primary Care Provider] - 05/25/17 3:00 pm Pretty Hollis DO [Partnered Physician] - 06/14/17 4:00 pm <Enoc Ayon - Last Filed: 05/16/17 19:15> Date of Encounter: 05/16/17 - Constitutional Vitals: Temp Pulse Resp BP Pulse Ox 98.2 F 95 20 135/82 97 05/16/17 19:06 05/16/17 19:06 05/16/17 19:06 05/16/17 19:06 05/16/17 19:06 Internal Medicine: Result - Labs CBC & Chem 7: 05/16/17 11:53 05/15/17 04:52 Labs: Short CBC 05/16/17 Range/Units 11:53 Hgb 9.4 L (12.9-16.9) g/dL Hct 27.3 L (37.5-50.1) % - ABG Interpretation ABG results: ABG ABG pH 7.48 pH Units (7.32-7.45) H 05/13/17 04:51 ABG pCO2 38 mmHg (35-45) 05/13/17 04:51 ABG pO2 59 mmHg (85-104) L 05/13/17 04:51 ABG O2 Saturation 92 % (95-98) L 05/13/17 04:51 PT/INR, D-dimer PT 14.4 Seconds (9.4-12.1) H 05/13/17 03:25 - Attending Attestation I examined this patient and my medical decision-making was reviewed with the Resident Physician. I agree with the documented findings, disposition and treatment plan as described except to the extent set forth below. His exam reveals regular rate and rhythm S1-S2, no murmurs. Lungs are clear. Continue postop care. Blood pressure management. Discharge planning.
[2017-05-16 12:19] LABS: Hematocrit 27.3 % (37.5-50.1); Hemoglobin 9.4 g/dL (12.9-16.9)
[2017-05-17 07:39] VITALS: BP 163/107
--- NOTE | 2017-05-17 07:59 | Discharge Summary ---
Date of Encounter: 05/17/17 Time of Encounter: 07:59 - Discharge Diagnosis (1) CAD (coronary artery disease) Priority: Primary Status: Chronic Qualifiers: Coronary Disease-Associated Artery/Lesion type: [place] artery [place] vs. transplanted heart: [place] heart Associated angina: with unstable angina Qualified Code(s): I25.110 - Atherosclerotic heart disease of [place] coronary artery with unstable angina pectoris - Discharge Medications Prescriptions: OxyCODONE/APAP 5/325 [Percocet 5/325 MG] 1 each PO Q4HR PRN #42 tablet PRN Reason: Severe Pain Amiodarone [Cordarone] 200 mg PO DAILY 30 Days #30 tablet Atorvastatin [Lipitor] 80 mg PO HS #30 tablet Metoprolol [Lopressor] 25 mg PO BID #60 tablet Home Medications: Aspirin Enteric Coated [Aspirin EC] 81 mg PO DAILY 05/11/17 [History] Lisinopril [Zestril] 40 mg PO DAILY 05/11/17 [History] Omeprazole [PriLOSEC] 20 mg PO DAILY 05/11/17 [History] hydroCHLOROthiazide [Hydrochlorothiazide] 25 mg PO QAM 05/11/17 [History] Amiodarone [Cordarone] 200 mg PO DAILY 30 Days #30 tablet 05/17/17 [Rx] Atorvastatin [Lipitor] 80 mg PO HS #30 tablet 05/17/17 [Rx] Metoprolol [Lopressor] 25 mg PO BID #60 tablet 05/17/17 [Rx] Nitroglycerin 0.4 mg SL Q5MIN PRN tab.subl 05/17/17 [Rx] OxyCODONE/APAP 5/325 [Percocet 5/325 MG] 1 each PO Q4HR PRN #42 tablet 05/17/17 [Rx] Allergies/Adverse Reactions: 3 Allergy/AdvReac Type Severity Reaction Status Date / Time No Known Allergies Allergy Unverified 07/06/15 11:36 Date of admission: 05/12/17 01:39 Primary care physician: Lizette Cho CNP Consults: 05/12/17 08:10 Consult to Cardiology [CONS] Routine Comment: Consulting Provider: Cardiology Meme Reason for Consult: chest pain, elevated trops 0.26. Pt on heparin gtt. Time Notified: 08:11 Call Completed: Yes 05/12/17 13:21 Consult to Cardiothoracic Surgery [CONS] Stat Consulting Provider: Cardiothoracic Surgery [place] Reason for Consult: severe 3v CAD, LM Call Completed: Yes 05/12/17 19:16 Consult to Cardiac Rehabilitation-Phase1 [CONS] Routine Comment: Reason for Consult: Post open heart Call Completed: Yes Procedure(s) Performed: 1. Cardiac catheterization performed May 12, 2017. 2. CABG 5 (BOBBY to LAD, sequential SVG to D1 then distal LCx, SVG to ramus intermedius, SVG to PDA) performed May 12, 2017. 3. Endoscopic vein harvesting, greater saphenous vein from right lower extremity performed May 12, 2017. Discharging clinician: Gilberto Wylie Anticipated date of discharge: 05/17/17 - Patient Status Disposition: Home, Self-Care Condition: Good Functional capacity at discharge: independent ambulation Overall status at discharge: patient is progressing back to baseline - Discharge Instructions Follow Up With: Fili Leon CNP [Advanced Practice Nurse] - 06/08/17 1:30 pm Gilberto Wylie MD [Partnered Physician] - 06/15/17 1:40 pm () Lizette Cho CNP [Primary Care Provider] - 05/25/17 3:00 pm Pretty Hollis DO [Partnered Physician] - 06/14/17 4:00 pm - Diet and Activity Activity: sternal precautions, no driving for four weeks, no lifting greater than 10 pounds for eight weeks Diet: low fat, low cholesterol - Hospital Course Hospital course: Mr. Irene is a 51 year old hypertensive man with known CAD who presented to [facility] emergency department last evening with a 2 day history of exertional substernal chest pain radiating to his left neck and associated shortness of breath, dyspnea on exertion, cough, and diaphoresis. The patient's cardiac history dates back to 2009 at which time he underwent stent placement in the LAD and RCA. The patient was on Plavix for 1 year after the stent placement and this was stopped by his community organization director. He states that he had done well until last weekend when he developed a cough while working in the yard. At that time he had no substernal chest pain. The pain then developed 2 days ago and was initially associated with exertion; however, yesterday the patient had pain at rest. He was evaluated at [facility] emergency department and found to have elevated troponin I levels consistent with an acute NSTEMI. He was treated medically and admitted for further cardiac workup. He underwent cardiac catheterization today was found to have severe three- vessel CAD and LVEF 50%. In particular the patient has a 90-95% distal left main lesion with encroachment into the LAD, RI, and LCx ostia. In addition, the patient has a 99% mid LCx lesion and a completely occluded mid RCA which fills distally via [id number] collaterals. The patient has been recommended for emergent CABG given the location and severity of the lesions. The patient underwent a CABG 5 after his cardiac catheterization. Postoperatively, the patient was transferred to the ICU where he remained hemodynamic stable. The patient was extubated and breathing comfortably. He remained in the ICU for close observation on POD#1. He was transferred to the telemetry unit on POD#3 since bed was not available on the stepdown unit until that time. Patient was ambulating without complaints of substernal chest pain or shortness of breath. The patient was discharged home on POD#5. - Time Spent with Patient Total time spent providing and/or coordinating discharge services: Physical Examination Vital Signs, Last 4 Hours Temp Pulse Resp BP Pulse Ox // 07:33 98.5 F 100 22 163/107 96 05/17/ 05:15 91 General: Conversant, No Apparent Distress HEENT: Atraumatic, Normocephaly, Trachea midline Neck: No JVD, Normal carotid pulses Cardiac: Reg Rate and Rhythm, Normal S1 and S2, No Murmur Lungs: Normal Breath Sounds, No Wheeze, Rales, Rhonchi Neuro: Alert and responsive, No focal deficits noted Vascular: Normal capillary refill Abdomen: Soft, Non-tender Extremities: No Clubbing, No Cyanosis, No Edema Other: Sternotomy incision healing well. Sternum stable to both deep breathing and coughing. Open Heart Registry Aspirin Cont/Prescribed at DC: Yes Beta [place] Cont/Prescribed at DC: Yes Statin Cont/Prescribed at DC: Yes MARYANN/ARB Cont/Prescribed at DC: Yes - VTE Documentation of Mechanical Device: Graduated compression elastic hosiery
[2017-05-17] MEDS: *HR* Amiodarone 200 MG TABLET PO SCH (08:36)
[2017-05-17] MEDS: Aspirin Enteric Coated 81 MG Tablet PO SCH (08:36)
--- NOTE | 2017-05-17 17:40 | Internal Med Progress Note ---
Date of Encounter: 05/17/17 Time of Encounter: 09:00 - Assessment and plan (1) CAD (coronary artery disease) Status: Chronic Assessment and plan: Status post CABG. Continue with aspirin and beta melissa statin and MARYANN inhibitor. Follow-up with outpatient clinical engineer. Qualifiers: Coronary Disease-Associated Artery/Lesion type: [place] artery [place] vs. transplanted heart: [place] heart Associated angina: without angina Qualified Code(s): I25.10 - Atherosclerotic heart disease of [place] coronary artery without angina pectoris (2) Hyperlipidemia Status: Chronic Assessment and plan: We will discharge on increased Lipitor dose 80 mg daily. I explained possible side effects to be aware of. Patient family verbalizes understanding. Qualifiers: Hyperlipidemia type: unspecified Qualified Code(s): E78.5 - Hyperlipidemia , unspecified (3) Hypertension Status: Chronic Assessment and plan: Blood pressure was elevated this morning. at discharge I rechecked it and obtained 145/80 Blood pressure is adequately controlled. Continue with lisinopril, HCTZ and metoprolol. Follow-up with PCP. Qualifiers: Hypertension type: essential hypertension Qualified Code(s): I10 - Essential (primary) hypertension - Subjective Interval history: Patient reports no chest pain or shortness of breath. Overall he has improved. - Constitutional Vitals: Temp Pulse Resp BP Pulse Ox 98.5 F 100 20 163/107 97 05/17/17 07:33 05/17/17 07:33 05/17/17 08:13 05/17/17 07:33 05/17/17 08:13 General appearance: Present: A&O X 3, pleasant, no acute distress, answers questions appropriately - Respiratory Respiratory exam: Present: CTAB. Absent: accessory muscle use, rales, rhonchi, wheezes - Cardiovascular Cardiovascular exam: Present: RRR, +S1, +S2. Absent: diastolic murmur, gallop, rubs, systolic murmur - GI/Abdominal GI/Abdominal exam: Present: normal bowel sounds, soft, no peritoneal signs. Absent: distended, tenderness - Skin Skin exam: Present: dry, intact Internal Medicine: Result - Labs CBC & Chem 7: 05/16/17 11:53 05/15/17 04:52 - ABG Interpretation ABG results: ABG ABG pH 7.48 pH Units (7.32-7.45) H 05/13/17 04:51 ABG pCO2 38 mmHg (35-45) 05/13/17 04:51 ABG pO2 59 mmHg (85-104) L 05/13/17 04:51 ABG O2 Saturation 92 % (95-98) L 05/13/17 04:51 PT/INR, D-dimer PT 14.4 Seconds (9.4-12.1) H 05/13/17 03:25 - VTE Documentation of Mechanical Device: Graduated compression elastic hosiery Consult Discharge Plan - Plan Instructions: Metoprolol (By mouth), Nitroglycerin (By mouth), Oxycodone/ Acetaminophen (By mouth), Amiodarone (By mouth), Atorvastatin (By mouth), Myocardial Infarction (DC), Coronary Artery Bypass Graft, Animal Therapist (GEN) , Sternal Precautions (GEN) Additional Instructions: If you have questions that are not answered by these instructions, please call your nurse or doctor. * Do not drive for 1 month or until allowed by your surgeon. * If you smoke, STOP SMOKING. Smoking or tobacco use significantly increases your risk of heart disease because nicotine causes the arteries to narrow or constrict. It also causes fats to stick to the artery. Your chances of occluding your new bypasses or having a heart attack are greatly increased if you continue to smoke. For more information call the patient education line for smoking cessation 1-099-PDVV-NOW. * Continue to use your incentive Spirometry about 6 times each day (1 use = 5 to 10 breaths) for 1 month. This important to help prevent pneumonia. * Follow your Phase I Cardiac Rehab Activity Guide. * You may climb stairs, one step at a time, as you are able. * Do not lift more than 10 pounds (1/2 gallon of milk = 5 pounds), vacuum, sweep , shovel snow, rake leaves, or do anything that could pull on the chest for 2 months. * You may resume sexual activity when you feel ready. * Continue to wear CATHY hose during the day for about 1 month. Remove and wash daily in mild detergent. * Gently wash incision with soap and water daily. Rinse well and pat dry with a clean towel. Do not soak your incisions under water. Do not use any powders, lotions, creams or ointments on your incision. * Chest tube sites may drain fluid for 1-2 weeks and can be covered with dry gauze. They also may become reddened or inflamed as they heal and can be cleaned twice a day with hydrogen peroxide. * Take your pulse once a day. If it is less than 60 or greater than 110 beats per minute at rest, call your Bailing Machine Operator, . * Take your temperature by mouth once a day for 2 weeks. Call your surgeon of it is above 101 degrees. * Call the surgeon if you notice drainage or redness at your incision lines. * Weigh yourself each day for 2 weeks. Call your doctor if you notice and increase in your weight of 3 pounds or more in a day or increasing shortness of breath. * If you experience chest pain, shortness of breath, dizziness or extreme tiredness, stop and rest. Please notify your doctor if you experience any of these symptoms. * If you experience any of these symptoms and they are not relieved with rest, please call 911. Referrals: Fran Crain MD [Primary Care Provider] - 05/30/17 2:45 pm Gilberto Wylie MD [Partnered Physician] - 06/15/17 1:40 pm () Lizette Cho CNP [Advanced Practice Nurse] - (WANT TO CHANGE DOCTORS) Pretty Hollis DO [Partnered Physician] - 06/14/17 4:00 pm Prescriptions: OxyCODONE/APAP 5/325 [Percocet 5/325 MG] 1 each PO Q4HR PRN #42 tablet PRN Reason: Severe Pain Amiodarone [Cordarone] 200 mg PO DAILY 30 Days #30 tablet Atorvastatin [Lipitor] 80 mg PO HS #30 tablet Metoprolol [Lopressor] 25 mg PO BID #60 tablet
== END 2017-05-17 10:09 | disposition home or self-care (01) | DRG 233 ==
LOC: 3BNU 20:19 → EMEROO 20:19 → 3BNU 05-12 00:52 → SUATTDRO 05-12 01:39 → ICNU 05-12 11:21 → 2NNU 05-15 18:49
PROVIDERS: ADMIT Family Medicine; ATTEND Internal Medicine